=== PATIENT | female | born 1945 | race Caucasian/White ===

== ENCOUNTER → 2016-07-24 | Outpatient (CLI) | payer MEDICARE ==
--- NOTE | 2016-07-25 11:38 | MM ---
Reason for exam: screening (asymptomatic). Last mammogram was performed 2 years and 4 months ago. History: Patient is postmenopausal. Excisional biopsy of the right breast. Took estrogen for 11 years. Physical Findings: A clinical breast exam by your physician is recommended on an annual basis and results should be correlated with mammographic findings. MG 3D Screening Mammo W/Cad Bilateral CC and MLO view(s) were taken. Prior study comparison: April 07, 2014, bilateral MG screening mammo w CAD. January 13, 2013, bilateral digital screening mammo w/CAD. The breast tissue is almost entirely fat. Finding: There are grouped/clustered calcifications in the left breast. No significant changes in finding since April 07, 2014 and January 13, 2013. ASSESSMENT: Benign, BI-RAD 2 RECOMMENDATION: Routine screening mammogram of both breasts in 1 year.
== END | disposition home or self-care (01) ==
LOC: RADMAMWWP 08:51
PROVIDERS: ATTEND Family Medicine
DX: Z12.31 Encounter for screening mammogram for malignant neoplasm of breast (principal)
CPT/HCPCS: 77063; G0202

== ENCOUNTER → 2016-08-06 | Outpatient (CLI) | payer MEDICARE | END | disposition home or self-care (01) | LOC: RADNMMAIN 08:55 | PROVIDERS: ATTEND Family Medicine | DX: Z53.9 Procedure and treatment not carried out, unspecified reason (principal) ==

== ENCOUNTER → 2016-10-02 | Outpatient (CLI) | payer MEDICARE ==
[~2016-10-02] MED LIST: REGADENOSON 0.4 MG/5 ML SYRINGE IV ONE
--- NOTE | 2016-10-02 13:38 | NM ---
EXAMINATION TYPE: NM stress lexiscan cardiolite DATE OF EXAM: 10/02/2016 COMPARISON: NONE HISTORY: 71-year-old female with chest pain TECHNIQUE: After the intravenous administration of 10.77 mCi Tc 99m Sestamibi - Cardiolite resting S PECT images acquired 45 minutes post injection. The patient received 0.4mg Lexiscan, 24.5 mCi Tc 99m Sestamibi - Stress images obtained [address] injection FINDINGS: The technologist notes PVCs at baseline. Review of stress and rest SPECT images demonstrates diminished perfusion along the anterior wall [place] on both rest and stress images suspected to represent attenuation artifact as there normal wall m otion and wall augmentation. No discrete perfusion abnormality on stress images. Gated analysis shows a slightly reduced left ventricular ejection fraction of 50 % which may be technical as visual inspe ction of the gated images shows relatively normal contraction. However, TID is measured at 1.29, whic h is increased. IMPRESSION: 1. Suspect some attenuation artifact along the anterior wall. No definite suspicious focal reversibil ity is seen. 2. However, TID is increased at 1.29. Further clinical evaluation as indicated since this can be seen in the setting of global, three-vessel, balanced ischemia.
--- NOTE | 2016-10-02 14:31 | EST ---
DATE OF SERVICE: 10/02/2016 TYPE OF REPORT: LEXISCAN CARDIOLITE STRESS TEST INDICATION: Chest pain. BASELINE HEART RATE: 78 BASELINE BLOOD PRESSURE: 159/81 MAXIMUM HEART RATE: 106 MAXIMUM BLOOD PRESSURE: 131/60 85% MPHR: 128 100% MPHR: 150 METS: - MAXIMUM STAGE REACHED: - TOTAL EXERCISE TIME: - Baseline EKG revealed normal sinus rhythm without significant ST-T changes. Heart rate changed from 78 to 106 beats per minute and blood pressure changed from 159/81 to 131/60. EKG did not reveal any significant ST segment changes and patient did not have any significant symptoms. By EKG criteria, this is an unremarkable Lexiscan stress test. The nuclear scan results which are more pertinent will be reported by the radiologist. ADRIANA
== END | disposition home or self-care (01) ==
LOC: RADNMMAIN 09:00
PROVIDERS: ATTEND Family Medicine
DX: R07.9 Chest pain, unspecified (principal)
CPT/HCPCS: 93017; 78452; A9500; J2785

== ENCOUNTER 2016-11-12 06:17 | Day surgery (SDC) | payer MEDICARE ==
[2016-11-07 09:39] VITALS: BMI 39.9
[~2016-11-12 06:17] MED LIST changes: +ASPIRIN 325 MG TAB PO ONE; +NITROGLYCERIN SL TABS 0.4 MG TAB SUBLINGUAL PRN; -REGADENOSON 0.4 MG/5 ML SYRINGE IV ONE; +SODIUM CHLORIDE 0.9% 1,000 ML in EMPTY BAG 1 BAG IV ONE
[2016-11-12 06:54] VITALS: RESP 16; TEMP 97.7
[2016-11-12 07:15] LABS: Basophils % (A) 1 %; CHCM 34.2; Eosinophils # (A) 0.3 k/uL (0-0.7); Eosinophils % (A) 4 %; HCT 42.7 % (34.0-46.0); HDW 2.48; HGB 13.9 gm/dL (11.4-16.0); Luc # (Auto) 0.07; Luc % (Auto) 1; Lymphocytes # (A) 1.6 k/uL (1.0-4.8); Lymphocytes % (A) 25 %; MCH 29.7 pg (25.0-35.0); MCHC 32.6 g/dL (31.0-37.0); MCV 91.1 fL (80.0-100.0); Mean Platelet Volume 7.5; Monocytes # (A) 0.4 k/uL (0-1.0); Monocytes % (A) 6 %; Neutrophils # (A) 4.2 k/uL (1.3-7.7); Neutrophils % (A) 64 %; RBC 4.69 m/uL (3.80-5.40); RDW 14.6 % (11.5-15.5); WBC 6.6 k/uL (3.8-10.6); WBC (Perox) 6.34
[2016-11-12 07:16] LABS: Glucose,Whole Blood 143 mg/dL (75-99)
[2016-11-12] MEDS ORDERED: diphenhydrAMINE 50 MG/ML 1 ML VIAL ONE (07:16)
[2016-11-12] MEDS ORDERED: fentaNYL (PF) 50 MCG/ML 2 ML AMP ONE (07:16)
[2016-11-12] MEDS ORDERED: LIDOCAINE 2% INJ 20 MG/ML (20 ML MDV) ONE (07:16)
[2016-11-12] MEDS ORDERED: VERAPAMIL 2.5 MG/ML 2 ML AMP ONE (07:16)
[2016-11-12 07:26] LABS: Anion Gap 10 mmol/L; Blood Urea Nitrogen 17 mg/dL (7-17); Calcium 9.3 mg/dL (8.4-10.2); Carbon Dioxide 23 mmol/L (22-30); Chloride 107 mmol/L (98-107); Glucose 141 mg/dL (74-99); Non-African American GFR(MDRD) >60 (>60 ml/min/1.73 sqM); Potassium 3.8 mmol/L (3.5-5.1); Sodium 140 mmol/L (137-145)
[2016-11-12] MEDS ORDERED: diphenhydrAMINE 50 MG/ML 1 ML VIAL IVP ONE (07:38)
[2016-11-12] MEDS ORDERED: fentaNYL (PF) 50 MCG/ML 2 ML AMP IVP ONE (07:38)
[2016-11-12] MEDS ORDERED: HEPARIN SODIUM 1,000 UN/ML (10ML VL) ONE (07:41)
[2016-11-12] MEDS ORDERED: VERAPAMIL SYRINGE (5 MG/10 ML) INTRAARTER ONE (07:42)
[2016-11-12] MEDS ORDERED: HEPARIN SODIUM 1,000 UN/ML (10ML VL) IV ONE (07:50)
[2016-11-12] MEDS ORDERED: IOHEXOL 350 MG/ML 125ML BOTTLE INJ ONE (07:54)
[2016-11-12] MEDS ORDERED: RX INFO: IV CONTRAST WAS GIVEN 1 EACH MISC MISCELLANE PRN (09:23)
[2016-11-12] MEDS ORDERED: ALPRAZolam 0.5 MG TAB PO PRN (09:24)
[2016-11-12] MEDS ORDERED: SODIUM CHLORIDE 0.9% 1,000 ML IV SCH (09:30)
--- NOTE | 2016-11-12 09:30 | CC ---
CARDIAC CATHETERIZATION REPORT Mrs. Lopez is a 71-year-old female, known history of hypertension, hyperlipidemia, diabetes mellitus, history of peripheral vascular disease who had symptoms of dyspnea on exertion. She underwent a stress test that revealed evidence of fixed inferior wall defect was elevated TID. and ejection fraction 50%. In view of that, recommendation made regarding cardiac catheterization. The procedure, its risks and complication were discussed with the patient who is in full understanding and agreement. PROCEDURE: Patient was brought to the [facility] after receiving fentanyl and Benadryl and achieving moderate conscious sedated state, a selective right coronary angiography performed using 5-Yoruba 3.5 bend right Alvin catheter, multiple views of the coronary artery including hemiaxial views were obtained. Following that 5-Yoruba tight pigtail catheter was introduced into the left ventricle and a 30 degree IBARRA view of the left ventricle was obtained. Following that, catheter and sheath were removed. Hemostasis was obtained with deployment of a TR band. There was no immediate complication. Patient was returned to her room in stable condition. Of note, the patient received 5000 units of intravenous heparin as well as intra-arterial verapamil. FINDINGS: LEFT MAIN: This is a large-sized vessel, trifurcating into left circumflex, left anterior artery artery and ramus intermedius. Left main coronary artery is without any significant obstructive coronary artery disease. LEFT ANTERIOR DESCENDING ARTERY: This is a large-sized vessel reaching toward the apex with a wraparound apex segment giving rise to a moderate-sized diagonal branch in the mid segment. The left anterior descending artery and its branches have no evidence of obstructive coronary artery disease. RAMUS INTERMEDIUS: This is a small size vessel that has no evidence of high-grade stenosis. LEFT CIRCUMFLEX: This is a large-size vessel, nondominant, giving rise to a large obtuse marginal branch. The left circumflex as well as branches have no evidence of obstructive coronary artery disease. RIGHT CORONARY ARTERY: This is a dominant vessel large in caliber, bifurcating distally into PDA, posterior segmental branches. The right coronary artery as well as its branches have no evidence of obstructive coronary artery disease. LEFT VENTRICULOGRAM: Left ventriculogram is performed in 30 degree IBARRA view and revealed normal left ventricular size and systolic function, ejection fraction is 60%. There was no significant mitral regurgitation. HEMODYNAMICS: There was no gradient across the aortic valve. The left ventricular end- diastolic pressure was 10 to 12 mmHg. CONCLUSION: 1. Normal coronary arteries. 2. Normal left ventricular size and systolic function. RECOMMENDATION: In view of finding anatomy, I would recommend to continue medical therapy with aggressive risk factor modification being initiated. Those findings and recommendations were discussed with the patient and her family who are in full understanding and agreement. Duration of the procedure is 19 minutes. MMJERI / STEPHANIEN: [id number] /
--- NOTE | 2016-11-12 09:36 | LTR ---
Date: DATE OF SERVICE: 11/12/2016 RE: Anahy Lopez Dear Dr. Hobson; I had the pleasure to perform cardiac catheterization on Mrs. Lopez at [facility] on November 12, 2016 and a full copy of the procedure note will be forwarded to you. In brief, she was found to have no evidence of obstructive coronary artery disease and based on this findings, I have recommended to continue medical therapy with the aggressive risk factor modifications being initiated. Thank you again for allowing me to participate in the patient's care. Please feel free to call for any questions. Sincerely yours, MD KRISH BartlettL / STEPHANIEN: [id number] /
[2016-11-12 09:50] VITALS: PULSE 56
[2016-11-12 13:03] VITALS: BP 132/67
[2016-11-13] MEDS ORDERED: NON-FORMULARY DRUG (Simvastatin [Zocor] 20 MG) PO SCH (09:00)
[2016-11-13] MEDS ORDERED: LOSARTAN 50 MG TAB PO SCH (09:00)
[2016-11-13] MEDS ORDERED: HYDROCHLOROTHIAZIDE 25 MG TAB PO SCH (09:00)
[2016-11-13] MEDS ORDERED: NON-FORMULARY DRUG (Aspirin [Adult Low Dose Aspirin Ec] 81 MG) PO SCH (09:00)
[2016-11-13] MEDS ORDERED: NON-FORMULARY DRUG (Citalopram Hydrobromide [Citalopram Hbr] 40 MG) PO SCH (09:00)
== END 2016-11-12 13:03 | disposition home or self-care (01) ==
LOC: CATHCVL 06:17
PROVIDERS: ATTEND Internal Medicine Interventional Cardiology
DX: R06.09 Other forms of dyspnea (principal); R94.39 Abnormal result of other cardiovascular function study; I73.9 Peripheral vascular disease, unspecified; I10 Essential (primary) hypertension; E78.2 Mixed hyperlipidemia; E11.9 Type 2 diabetes mellitus without complications; Z79.84 Long term (current) use of oral hypoglycemic drugs; Z79.82 Long term (current) use of aspirin; Z79.899 Other long term (current) drug therapy
CPT/HCPCS: 99152; 93458; 80048; 85025; C1894; C1769; J1200; J3010; J1644; Q9967

== ENCOUNTER 2017-04-23 06:41 | Day surgery (SDC) | payer MEDICARE ==
[2017-04-22 10:32] VITALS: BMI 39.3
[2017-04-23 07:11] VITALS: TEMP 98.5
[2017-04-23] MEDS: LACTATED RINGERS 1,000 ML IV SCH ×2 (07:17→07:35)
[2017-04-23 07:25] LABS: Glucose,Whole Blood 137 mg/dL (75-99)
[2017-04-23] MEDS ORDERED: PROPOFOL 10 MG/ML 20 ML VIAL IV ONE (07:33)
--- NOTE | 2017-04-23 08:04 | P.PCN ---
Date of Procedure: 04/23/17 Procedure(s) Performed: BRIEF HISTORY: Patient is a 71-year-old pleasant white female, scheduled for an elective colonoscopy as a part of screening for colorectal neoplasia. PROCEDURE PERFORMED: Colonoscopy. PREOPERATIVE DIAGNOSIS: Screening for colon cancer. IV sedation per Anesthesia. PROCEDURE: After informed consent was obtained, the patient, was brought into the endoscopy unit. IV sedation was administered by Anesthesia under continuous monitoring. Digital rectal examination was normal. Initially the Olympus CF- 160 flexible video colonoscope was then inserted in the rectum, gradually advanced into the cecum without any difficulty. Careful examination was performed as the scope was gradually being withdrawn. Ileocecal valve and the appendiceal orifice were visualized and appeared normal. Prep was excellent. Mucosa of the cecum, ascending colon, transverse colon, descending colon, sigmoid colon, and rectum appeared normal. Scattered similar diverticulosis seen. Retroflexion was performed in the rectum and no lesions were seen. The patient tolerated the procedure well. IMPRESSION: Normal-appearing colon from rectum to cecum with no evidence of colorectal neoplasia. Scattered sigmoidal diverticulosis. RECOMMENDATIONS: Findings of this examination were discussed with the patient as well as her family. She was advised to have a repeat screening colonoscopy in 10 years.
[2017-04-23 08:13] LABS: Glucose,Whole Blood 126 mg/dL (75-99)
[2017-04-23 08:23] VITALS: RESP 18
[2017-04-23 08:41] VITALS: BP 159/89; PULSE 63
== END 2017-04-23 09:04 | disposition home or self-care (01) ==
LOC: ORWHC2ENDO 06:41
PROVIDERS: ATTEND Internal Medicine Gastroenterology
DX: Z12.11 Encounter for screening for malignant neoplasm of colon (principal); K57.30 Diverticulosis of large intestine without perforation or abscess without bleeding; I10 Essential (primary) hypertension; E78.5 Hyperlipidemia, unspecified; E11.9 Type 2 diabetes mellitus without complications; Z79.84 Long term (current) use of oral hypoglycemic drugs; Z79.82 Long term (current) use of aspirin; Z79.899 Other long term (current) drug therapy
CPT/HCPCS: J2704; G0121; 45378

== ENCOUNTER 2017-10-11 17:06 | Emergency (ER) | payer MEDICARE ==
[2017-10-11 17:15] LABS: Glucose,Whole Blood 170 mg/dL (75-99)
[2017-10-11 17:19] VITALS: BP 167/71; PULSE 76; RESP 18; TEMP 98.5
--- NOTE | 2017-10-11 17:57 | ED ---
General Adult HPI - General Chief complaint: Recheck/Abnormal Lab/Rx Stated complaint: hypoglycemia Time Seen by Provider: 10/11/17 17:26 Source: patient, RN notes reviewed Mode of arrival: ambulatory Limitations: no limitations - History of Present Illness Initial comments: This is a 72-year-old female who presents to the emergency department with chief complaint of blood glucose problems. Patient states that she has had Type II diabetes for many years. She states that she has been on metformin 500 mg twice a day. Patient states that she sees Dr. Hobson. Patient states that over the past few months she has had low blood sugar in the 20s each morning. She states that when this happens she feels sweaty and weak. Patient reports her blood sugar dropping into the 20s this morning. She states that she ate and then felt better. Patient states that she did address this with Dr. Hobson on Friday who suggested she stop taking her nighttime dose. Patient states that she has done this a couple of nights. She states that when she takes her blood sugar it is in the evening and is within normal range with an average of 115. Patient has no complaints at this time. She is asymptomatic. Denies fevers or chills, chest pain or shortness of breath, abdominal pain, nausea or vomiting, weakness or dizziness. - Related Data Home Medications Medication Instructions Recorded Confirmed Aspirin [Adult Low Dose Aspirin EC] 81 mg PO DAILY 11/07/16 04/23/17 Hydrochlorothiazide 25 mg PO DAILY 11/07/16 04/23/17 Losartan Potassium [Cozaar] 50 mg PO DAILY 11/07/16 04/23/17 Simvastatin [Zocor] 20 mg PO DAILY 11/07/16 04/23/17 metFORMIN HCL [Glucophage] 500 mg PO BID 11/07/16 04/23/17 ALPRAZolam [Xanax] 0.25 mg PO Q8HR PRN 04/22/17 04/23/17 Citalopram Hydrobromide 20 mg PO DAILY 04/22/17 04/23/17 [Citalopram HBr] Allergies Allergy/AdvReac Type Severity Reaction Status Date / Time No Known Allergies Allergy Verified 10/11/17 17:06 Review of Systems ROS Statement: Those systems with pertinent positive or pertinent negative responses have been documented in the HPI. ROS Other: All systems not noted in ROS Statement are negative. Past Medical History Past Medical History: Diabetes Mellitus, GERD/Reflux, Hyperlipidemia, Hypertension, Osteoarthritis (OA) Additional Past Medical History / Comment(s): arthritis rt knee, History of Any Multi-Drug Resistant Organisms: None Reported Past Surgical History: Breast Surgery, Cholecystectomy, Heart Catheterization, Hysterectomy, Tubal Ligation Additional Past Surgical History / Comment(s): rt breast biopsy, rt carotid endartectomy Past Anesthesia/Blood Transfusion Reactions: No Reported Reaction Additional Past Anesthesia/Blood Transfusion Reaction / Comment(s): claustrophobic Past Psychological History: Anxiety, Depression Smoking Status: Never smoker Past Alcohol Use History: None Reported Past Drug Use History: None Reported - Past Family History Mother Family Medical History: No Reported History Father Family Medical History: Cancer General Exam - General Exam Comments Initial Comments: General: Awake and alert, well-developed; in no apparent distress. HEENT: Head atraumatic, normocephalic. Pupils are equal, round and reactive to light. Extraocular movements intact. Oropharynx moist without erythema or exudate. Neck: Supple. Normal ROM. Cardiovascular: Regular rate and rhythm. No murmurs, rubs or gallops. Chest symmetrical. Respiratory: Lungs clear to auscultation bilaterally. No wheezes, rales or rhonchi. Normal respiratory effort with no use of accessory muscles. Musculoskeletal: Normal ROM, no tenderness bilateral upper and lower extremities. Ambulating normally. Skin: [place], warm and dry without rashes or lesions. Neurological: Alert and oriented x3. CN II-XII grossly intact. Speech is fluent and answers are appropriate. No focal neuro deficits. Psychiatric: Normal mood and affect. No overt signs of depression or anxiety noted. Limitations: no limitations Course Vital Signs 10/11/17 17:06 Temperature 98.5 F Pulse Rate 76 Respiratory 18 Rate Blood Pressure 167/71 O2 Sat by Pulse 98 Oximetry Medical Decision Making - Medical Decision Making This is a 72-year-old female who presents to the emergency department with chief complaint of blood glucose issues. Patient is a type II diabetic. She takes metformin 500 mg twice a day. Patient reports hypoglycemia in the mornings. She states that she has followed up with her primary care provider who suggested not taking her nighttime dose. Patient states that she has done this a few times since Friday. Patient reports continuing hypoglycemia in the mornings however feels better after she eats. While in the emergency department , patient is asymptomatic. Her glucometer has a reading of 159 and ours is 170. Patient has not yet taken her metformin today. I did provide diabetic education. We discussed withholding her nighttime dose as was instructed by Dr. Hobson if her morning blood glucose levels remained low. We discussed making a record of her blood glucose levels and when she is taking her metformin. I recommended taking this record to her next appointment which I did suggest making within the next couple of days. Patient's vital signs the been stable and she is in no acute distress. She is in agreement with plan and voices understanding. She will be discharged home at this time. All questions answered. - Lab Data Lab Results 10/11/17 Range/Units 17:11 POC Glucose (mg/dL) 170 H (75-99) mg/dL POC Glu Outbound Call Center Representative ID Maren Barahona Disposition Clinical Impression: Encounter for diabetes education Disposition: HOME SELF-CARE Condition: Good Instructions: How to Check Your Blood Sugar (ED), Type 2 Diabetes in Adults (ED ) Additional Instructions: Please make a record of your blood glucose levels in the morning and in the evening and time you take your metformin. Please bring the record to your next appointment with Dr. Hobson and follow-up within 1-2 days. Please withhold your nighttime dose if morning blood sugars continue to be low. Please return to the emergency department if you develop any worsening symptoms or any concerns arise. Is patient prescribed a controlled substance at d/c from ED?: No Referrals: Sandrita Hobson MD [Primary Care Provider] - 1-2 days Time of Disposition: 17:59
== END 2017-10-11 18:10 | disposition home or self-care (01) ==
LOC: EC 17:06
DX: Z71.89 Other specified counseling (principal); E11.9 Type 2 diabetes mellitus without complications; E78.5 Hyperlipidemia, unspecified; I10 Essential (primary) hypertension; M17.11 Unilateral primary osteoarthritis, right knee; F32.9 Major depressive disorder, single episode, unspecified; F41.9 Anxiety disorder, unspecified; Z79.82 Long term (current) use of aspirin; Z79.84 Long term (current) use of oral hypoglycemic drugs; Z79.899 Other long term (current) drug therapy
CPT/HCPCS: 36415; 99284

== ENCOUNTER → 2018-09-22 | Outpatient (CLI) | payer MEDICARE ==
[2018-09-22 16:03] LABS: HCT 42.5 % (34.0-46.0); HGB 13.6 gm/dL (11.4-16.0); MCH 29.5 pg (25.0-35.0); MCHC 31.9 g/dL (31.0-37.0); MCV 92.3 fL (80.0-100.0); Mean Platelet Volume 6.6; Platelet Count 343 k/uL (150-450); RDW 13.8 % (11.5-15.5); WBC 11.1 k/uL (3.8-10.6)
[2018-09-22 16:08] LABS: Prothrombin Time 10.4 sec (9.0-12.0)
[2018-09-22 16:09] LABS: Partial Thromboplastin Time 22.3 sec (22.0-30.0)
[2018-09-22 16:14] LABS: Albumin 4.6 g/dL (3.5-5.0); Calcium 9.9 mg/dL (8.4-10.2); Potassium 4.1 mmol/L (3.5-5.1); Total Bilirubin 0.3 mg/dL (0.2-1.3)
[2018-09-22 16:22] LABS: Appearance,Urine Clear (Clear); Bacteria,Urine Occasional /hpf; Bilirubin,Urine Negative (Negative); Blood,Urine Negative (Negative); Color,Urine Yellow; Glucose,Urine (UA) Negative (Negative); Ketones,Urine Negative (Negative); Leukocyte Esterase,Urine Large (Negative); Mucus,Urine Rare /hpf; Nitrite,Urine Negative (Negative); PH, Urine 6.5 (5.0-8.0); Protein,Urine Negative (Negative); RBC,Urine 1 /hpf (0-5); Specific Gravity,Urine 1.017 (1.001-1.035); Squamous Epithelial Cell,Urine <1 /hpf (0-4); Urobilinogen,Urine <2.0 mg/dL (<2.0); WBC,Urine 63 /hpf (0-5)
== END | disposition home or self-care (01) ==
LOC: LABPAT 15:21
PROVIDERS: ATTEND Orthopaedic Surgery Sports Medicine
DX: Z01.812 Encounter for preprocedural laboratory examination (principal); Z01.818 Encounter for other preprocedural examination
CPT/HCPCS: 36415; 80053; 81001; 85027; 85610; 85730; 87070; 93005

== ENCOUNTER 2018-10-07 10:48 | Day surgery (SDC) | payer MEDICARE ==
[~2018-10-07 10:48] MED LIST changes: +ACETAMINOPHEN TAB 500 MG TAB PO ONE; -ASPIRIN 325 MG TAB PO ONE; +DEXAMETHASONE SOD PHOSPHATE 10 MG/ML 1 ML VIAL IV ONE; +GABAPENTIN 300 MG CAP PO ONE; +HYDROmorphone 0.5 MG/0.5 ML SYRINGE IVP PRN; +MELOXICAM 7.5 MG TAB PO ONE; -NITROGLYCERIN SL TABS 0.4 MG TAB SUBLINGUAL PRN; +ONDANSETRON 4 MG/2 ML VIAL IVP ONE; +ROPIVACAINE 246.25 MG, EPINEPHrine 0.5 MG, KETOROLAC 30 MG, cloNIDine HCL/PF 80 MCG, WA... MISCELLANE ONE; -SODIUM CHLORIDE 0.9% 1,000 ML in EMPTY BAG 1 BAG IV ONE; +TRANEXAMIC ACID 1,000 MG in SODIUM CHLORIDE 0.9% 100 ML IVPB ONE
[2018-10-07] MEDS: LACTATED RINGERS 1,000 ML IV SCH (11:42)
[2018-10-07 11:43] LABS: Glucose,Whole Blood 110 mg/dL (75-99)
[2018-10-07] MEDS ORDERED: MIDAZOLAM 2 MG/2 ML VIAL ONE (12:29)
[2018-10-07] MEDS ORDERED: TRANEXAMIC ACID 1,000 MG/10 ML VIAL ONE (12:29)
[2018-10-07] MEDS ORDERED: SODIUM CHLORIDE 0.9% 100 ML BAG ONE (12:29)
[2018-10-07] MEDS ORDERED: MORPHINE SULFATE (PF) 0.3 MG/0.3 ML SYR ONE (12:29)
[2018-10-07] MEDS ORDERED: ePHEDrine SULFATE/0.9% NACL/PF 50 MG/5 ML SYRINGE IV ONE (12:29)
[2018-10-07] MEDS ORDERED: PROPOFOL 10 MG/ML 20 ML VIAL IV ONE (12:29)
[2018-10-07] MEDS ORDERED: fentaNYL (PF) 50 MCG/ML 2 ML AMP ONE (12:29)
[2018-10-07] MEDS ORDERED: ceFAZolin 3,000 MG in SODIUM CHLORIDE 0.9% IRRIGATIO 3,000 ML IRRIGATION ONE (12:34)
[2018-10-07] MEDS ORDERED: LACTATED RINGERS 1,000 ML IV ONE (13:42)
[2018-10-07] MEDS ORDERED: HYDROmorphone 0.5 MG/0.5 ML SYRINGE IVP PRN ×3 (14:24)
[2018-10-07] MEDS ORDERED: TEMAZEPAM 15 MG CAP PO PRN (14:24)
[2018-10-07] MEDS ORDERED: BISACODYL 10 MG SUPP RECTAL PRN (14:24)
[2018-10-07] MEDS ORDERED: HYDROcodone/APAP 5-325MG 1 EACH TAB PO PRN (14:24)
[2018-10-07] MEDS ORDERED: DIAZEPAM 5 MG TAB PO PRN (14:24)
[2018-10-07] MEDS ORDERED: MAGNESIUM HYDROXIDE 2,400 MG/10 ML CUP PO PRN (14:24)
[2018-10-07] MEDS ORDERED: ONDANSETRON 4 MG/2 ML VIAL IVP PRN (14:24)
[2018-10-07] MEDS ORDERED: NA PHOS,M-B/NA PHOS,DI-BA 133 ML ENEMA RECTAL PRN (14:24)
[2018-10-07] MEDS ORDERED: NALOXONE 0.4 MG/ML 1 ML VIAL IV PRN (14:24)
[2018-10-07] MEDS ORDERED: traMADol 50 MG TAB PO PRN (14:24)
[2018-10-07] MEDS ORDERED: HYDROcodone/APAP 10-325MG 1 EACH TAB PO PRN (14:24)
[2018-10-07] MEDS ORDERED: hydrOXYzine PAMOATE 25 MG CAP PO PRN (14:24)
--- NOTE | 2018-10-07 14:54 | XR ---
EXAMINATION TYPE: XR knee limited RT DATE OF EXAM: 10/07/2018 CLINICAL HISTORY: Right knee pain and arthritis status post total knee replacement. TECHNIQUE: Portable AP and crosstable lateral views of the right knee are obtained immediately posto peratively. COMPARISON: None FINDINGS: Metallic hardware from total right knee arthroplasty is seen and appears satisfactory in a lignment and position. There is evidence of recent surgery with subcutaneous emphysema and edema not ed. IMPRESSION: METALLIC HARDWARE FROM TOTAL RIGHT KNEE ARTHROPLASTY IS SATISFACTORY IN ALIGNMENT.
[2018-10-07] MEDS ORDERED: diphenhydrAMINE 50 MG/ML 1 ML VIAL IVP PRN (15:24)
[2018-10-07] MEDS ORDERED: NALBUPHINE 10 MG/ML (1 ML AMP) IV PRN (15:24)
[2018-10-07 16:15] LABS: Glucose,Whole Blood 184 mg/dL (75-99)
[2018-10-07 16:29] VITALS: BMI 40.2
[2018-10-07] MEDS: INSULIN ASPART (NovoLOG) 100 UNIT/ML VIAL SQ SCH ×2 (17:27→21:21)
--- NOTE | 2018-10-07 17:51 | OP ---
OPERATIVE REPORT DATE OF PROCEDURE: 10/07/2018 SURGEON: René Patino MD. UNDERTAKER HELPER: Tez FARRIS. PREOPERATIVE DIAGNOSIS: Right knee osteoarthrosis. POSTOPERATIVE DIAGNOSIS: Right knee osteoarthrosis. OPERATION PERFORMED: Right total knee arthroplasty. ANESTHESIA: Spinal with sedation. ESTIMATED BLOOD LOSS: 100 mL. TOURNIQUET TIME: 42 minutes at 250 mmHg. COMPLICATIONS: None apparent. DRAINS: None. DISPOSITION: Postanesthesia care unit. INDICATIONS: Anahy is a very pleasant 73-year-old female with longstanding history of right knee pain. History and physical examination are consistent with advanced right knee osteoarthrosis. She has been through significant nonoperative management at this point. Further treatment options were discussed and she has decided to go forward with right total knee arthroplasty. The risks of procedure were discussed with her in detail. These risks include, but are not limited to risk of infection, nerve damage, bleeding, pain and risk of deep vein thrombosis which could lead to fatal pulmonary embolism. There is also risk of loosening of the implant which could require revision operation. The patient understands these risks. All of her questions were answered to her satisfaction. Appropriate informed consent was obtained. DESCRIPTION OF PROCEDURE: Patient identified in preoperative holding area. Surgical sites marked by both the patient and myself. She was given 2 g of Ancef IV for prophylactic purposes. She was then transferred to the operative suite. She was placed supine on the operative table. A spinal anesthetic was then administered and dosed per the anesthesia department without apparent complication. Examination under anesthesia was then performed. The patient was 2-3 degrees shy of full extension. She had 100 degrees of flexion in the medial collateral ligament, lateral collateral ligament. Posterior cruciate ligaments were stable. Tourniquet was then placed high on the right upper thigh well-padded in preparation for surgery. The patient's right lower extremity was then prepped and draped in usual sterile fashion. Standard surgical pause undertaken to ensure that we were operating the correct site and that appropriate preop antibiotics were given. All staff in the room in agreement and we proceeded. The outlines of the patella were marked with a surgical pen. A planned 12 cm vertical incision centered over the patella was marked with a surgical pen. The leg was then exsanguinated with an Esmarch dressing. The knee was then flexed. The tourniquet was inflated to 250 mmHg. The total total tourniquet time for the procedure was 42 minutes. Incision was then made with a 10 blade scalpel. Dissection carried down sharply overlying fascia. Great care was taken to minimize the skin flaps. The knee was then exposed using a standard medial parapatellar approach. A small cuff of quadriceps tendon was then left for suturing. She was in a bit of varus preoperatively. A standard medial release was then made. Superficial medial collateral ligament was dissected off the bone around the posterior aspect of the proximal tibia. The medial meniscus was then excised as well. The lateral meniscus was also released anteriorly. The leg was then externally rotated. The patella was everted. The knee was flexed. The retractors then placed to protect the collateral ligaments. I then proceeded to remove the infrapatellar fat pad. This was excised sharply tangentially with the fibers of the patellar tendon. I then proceeded to remove peripheral osteophytes. This was done with a rongeur. I then proceed with the distal femoral resection. She did have near full extension. A planned 9 mm resection was then done. The femoral canal was then entered in the midline of the femur approximately 10 mm anterior to the origin of the posterior cruciate ligament. The mane was then advanced down the center of the femur and placed intramedullary. Based on the preoperative radiographs, the angle between the anatomic and mechanical axis of the femur was approximately 4-5 degrees. The valgus angle of the distal femoral cutting guide was then set at 4 degrees for the right knee. The distal femoral cutting guide was then advanced over the intramedullary mane. This was seated firmly against the femur. I then as mentioned planned to take 9 mm off the distal femur. The cutting block was then secured onto the femur with pins. The jig was removed. The distal femoral cut was made through the slot of the block. The pins were then removed. The distal femoral cutting block was removed. The accuracy of the distal femoral cuts was checked with 2 flat bars. I then proceed to femoral sizing. Posterior referencing sizing guide was held firmly against the resected distal surface of the femur. The posterior condyles were resting on the posterior plane of the guide. The sizing stylus was then placed onto the anterior femur. The size measured as a size 7. I then assessed for femoral rotation. The plan was for 3 degrees of external rotation. Three degrees of external rotation was placed onto the jig. These holes were then marked. I then confirmed the rotation by 3 separate methods. This was done using epicondylar axis as well as Whitesides line and posterior referencing. It was deemed that the external rotation was proper. I then went forward placing the femoral cutting block. This was placed over the previously placed pin holes. The Tomy wing was then placed onto the anterior slots to ensure that we would not notch the anterior femur with the anterior femoral cut. I then proceed with the anterior femoral cut. This was flush with the anterior cortex of the femur. Posterior cuts were then made followed by the anterior chamfer cut, then the posterior chamfer cut. The cutting block was then removed. Throughout the resection, the collateral ligaments were protected with retractors. I then placed a trial size 7 femur. It was slightly wide mediolateral but the narrow fit very nicely and flush with the distal end of the femur. The drill holes were then made. I then proceed with the tibial cut. I planned for cruciate -retaining knee. The guide was placed and set for varus valgus and for slope. The height was set for approximate 2 mm resection from the medial tibial plateau which was the lower side. I was happy with the alignment amount of resection. The cutting block was then pinned to the proximal tibia. The alignment mane was removed. The proximal tibia was resected with a reciprocating saw. Again this was done with retractors protecting the collateral ligaments as well as the posterior cruciate ligament. I then proceeded to evaluate the flexion and extension gaps. A 10 mm block was then placed. The flexion-extension gaps were equal. I then proceed to resection of posterior osteophytes. She had minimal posterior osteophytes. This was done using a curved osteotome. This resected the posterior osteophytes and posterior capsule stripping was done off the posterior aspect of the femur at this time. The osteophytes were then removed. I then proceed to resection of patella. The thickness of patella was measured using the caliper. The thickness was approximately point was 22 mm. The thickness of the anticipated patellar dome was taken into account. Resection was then performed and confirmed to be equal in 4 quadrants using a caliper. Approximately 14 mm of bone remained after the resection. A 29 x 8 standard patellar trial was then placed. The holes were drilled. The trial was then placed. I then proceed to size the tibial plate. A size D tibial plate fit very nicely. I then placed the trial femur the tibial tray and patellar button. A 10 mm trial tibial insert was also placed. The components fit very nicely. She had full extension and flexion. The extension and flexion gaps were equal and stable to both varus and valgus stress. The patella tracked appropriately. Tibial tray rotation was then marked with a Bovie. This was externally rotated properly. I then proceed with tibial preparation. I first drilled the femoral holes and removed femoral component. The tibial tray was then set for proper external rotation as well as mediolateral placement onto the tibia. It was then pinned into place. I then proceed with punching the keel. Then, I decided to proceed with cementing of all of our components. The knee was thoroughly irrigated with sterile saline solution via pulse lavage. The lateral geniculate artery was identified and cauterized. All blood was removed from the bone of the tibia femur and patella with pulse lavage. Then proceeded with cementing. Two packs of antibiotic bone cement prepared on the back table by the surgical oncologist. I then proceed with cementing the tibia first. The cement was impacted in the keel as well as the seated in the bone. A second coat of cement was then placed. The tibia was then impacted into place. Excess cement was removed with Jimbo's and jokers. I then proceed with cementing of the femoral component. The femoral component was also cemented using standard technique. Excess cement was removed. A 10 mm trial insert was then placed into the knee. It was brought into full extension with a constant axial load placed until the cement had hardened. The patellar component was then cemented. This held firmly with a compressive device until the cement had dried. When the cement had dried, the knee was taken out of extension. All excess cement was removed from around the prosthesis. I then trialed the knee with a 10 mm insert. The flexion-extension gaps were appropriate. The knee was stable. It came into full extension. I decided to go forward with a 10 mm cross-linked cruciate-retaining tibial insert. Polyethylene was then placed on the tibial tray and locked into place. The knee was then reduced. The knee was again further irrigated with sterile saline solution with antibiotic added. The tourniquet was then deflated. Total tourniquet time for the procedure was 42 minutes at 250 mmHg. Final components were Win Persona size 7 narrow cruciate-retaining femoral component, a size D tibial tray, a 10 mm medial congruent cruciate-retaining tibial polyethylene insert, and a 29 x 8 mm patella. I then proceeded with closure. Again, the knee was thoroughly irrigated. The quadriceps tendon and the medial retinaculum were reapproximated with #2 Ethibond suture. The extensor mechanism was then closed with a running #2 Quill suture. The subcutaneous tissues were closed with 2-0 Vicryl interrupted suture. The skin was closed with a running 3-0 Quill suture. Dermabond was applied to the incision. Sterile compressive dressing was then applied. All sponge and needle counts were deemed correct prior to closure. The patient tolerated the procedure without apparent complication. She was transferred recovery room in stable condition. MMODL / IJN: [id number] /
--- NOTE | 2018-10-07 17:56 | P.CONS ---
History of Present Illness - Reason for Consult Recommendations regarding antidepressant medications - History of Present Illness 73-year-old pleasant female was admitted for elective right knee arthroplasty patient is clinically doing well at this time no fever no chills no nausea no vomiting no dysuria. Patient does have history of decubitus mellitus does have history of hypertension and breast medications are being held to avoid perioperative hypotension. Review of Systems REVIEW OF SYSTEMS: CONSTITUTIONAL: No fever, no malaise, no fatigue. HEENT: No recent visual problems or hearing problems. Denied any sore throat. CARDIOVASCULAR: No chest pain, orthopnea, PND, no palpitations, no syncope. PULMONARY: No shortness of breath, no cough, no hemoptysis. GASTROINTESTINAL: No diarrhea, no nausea, no vomiting, no abdominal pain. NEUROLOGICAL: No headaches, no weakness, no numbness. HEMATOLOGICAL: Denies any bleeding or petechiae. GENITOURINARY: Denies any burning micturition, frequency, or urgency. MUSCULOSKELETAL/RHEUMATOLOGICAL: Denies any joint pain, swelling, or any muscle pain. ENDOCRINE: Denies any polyuria or polydipsia. The rest of the 14-point review of systems is negative. Past Medical History Past Medical History: Diabetes Mellitus, Hyperlipidemia, Hypertension, Osteoarthritis (OA) Additional Past Medical History / Comment(s): arthritis rt knee, History of Any Multi-Drug Resistant Organisms: None Reported Past Surgical History: Breast Surgery, Cholecystectomy, Heart Catheterization, Hysterectomy, Tonsillectomy, Tubal Ligation Additional Past Surgical History / Comment(s): rt breast biopsy, rt carotid endartectomy Past Anesthesia/Blood Transfusion Reactions: No Reported Reaction Additional Past Anesthesia/Blood Transfusion Reaction / Comm: claustrophobic Past Psychological History: Anxiety, Depression Additional Psychological History / Comment(s): claustrophobia Smoking Status: Never smoker Past Alcohol Use History: None Reported Past Drug Use History: None Reported - Past Family History Mother Family Medical History: No Reported History Father Family Medical History: Cancer Medications and Allergies Home Medications Medication Instructions Recorded Confirmed Type Aspirin [Adult Low Dose Aspirin EC] 81 mg PO DAILY 11/07/16 09/29/18 History Hydrochlorothiazide 25 mg PO DAILY 11/07/16 10/07/18 History Losartan Potassium [Cozaar] 50 mg PO DAILY 11/07/16 09/29/18 History Simvastatin [Zocor] 20 mg PO DAILY 11/07/16 10/07/18 History metFORMIN HCL [Glucophage] 500 mg PO HS 11/07/16 10/07/18 History ALPRAZolam [Xanax] 0.25 mg PO Q8HR PRN 04/22/17 09/29/18 History Citalopram Hydrobromide 20 mg PO DAILY 04/22/17 10/07/18 History [Citalopram HBr] Allergies Allergy/AdvReac Type Severity Reaction Status Date / Time No Known Allergies Allergy Verified 09/29/18 13:35 Physical Exam Vitals: Vital Signs Temp Pulse Pulse Pulse Resp BP BP 10/07/18 17:08 16 10/07/18 17:07 76 118/74 10/07/18 16:53 88 103/47 10/07/18 16:07 83 117/73 10/07/18 15:52 91 128/76 10/07/18 15:37 84 114/59 10/07/18 15:29 97.5 F L 87 16 118/68 10/07/18 15:02 84 20 105/55 10/07/18 14:47 83 18 123/60 10/07/18 14:32 85 18 121/56 10/07/18 14:22 97.0 F L 89 13 108/54 10/07/18 11:34 97.7 F 71 16 144/72 Pulse Ox 10/07/18 17:08 10/07/18 17:07 90 L 10/07/18 16:53 90 L 10/07/18 16:07 95 10/07/18 15:52 92 L 10/07/18 15:37 93 L 10/07/18 15:29 92 L 10/07/18 15:02 94 L 10/07/18 14:47 93 L 10/07/18 14:32 95 10/07/18 14:22 92 L 10/07/18 11:34 95 Intake and Output 10/07/18 10/07/18 10/07/18 06:59 14:59 22:59 Intake Total 1251 300 Output Total 100 Balance 1151 300 Intake: IV 1251 300 Output: Estimated Blood Loss 100 PHYSICAL EXAMINATION: GENERAL: The patient is alert and oriented x3, not in any acute distress. Well developed, well nourished. HEENT: Pupils are round and equally reacting to light. EOMI. No scleral icterus. No conjunctival pallor. Normocephalic, atraumatic. No pharyngeal erythema. No thyromegaly. CARDIOVASCULAR: S1 and S2 present. No murmurs, rubs, or gallops. PULMONARY: Chest is clear to auscultation, no wheezing or crackles. ABDOMEN: Soft, nontender, nondistended, normoactive bowel sounds. No palpable organomegaly. MUSCULOSKELETAL: No joint swelling or deformity. Right knee is postsurgical effect EXTREMITIES: No cyanosis, clubbing, or pedal edema. NEUROLOGICAL: Gross neurological examination did not reveal any focal deficits. SKIN: No rashes. Results Labs: Abnormal Lab Results - Last 24 Hours (Table) 10/07/18 10/07/18 Range/Units 11:39 16:11 POC Glucose (mg/dL) 110 H 184 H (75-99) mg/dL Assessment and Plan Plan: -Hypertension will hold off on anti-of his medications including diuretic therapy to avoid perioperative hypotension related to monitor the blood pressure -Status post right knee arthroplasty pain management due to prophylaxis per primary service patient is in aspirin 325 mg twice a day because of which I'll discontinue 81 mg aspirin. -Hyperlipidemia -Type 2 diabetes mellitus: Will use sliding scale insulin -Osteoarthritis -Depression For above-mentioned chronic with problems patient can be resumed on her medications
[2018-10-07 20:11] LABS: Glucose,Whole Blood 240 mg/dL (75-99)
[2018-10-07] MEDS ORDERED: SENNOSIDES-DOCUSATE SODIUM 1 EACH TAB PO SCH (21:00)
[2018-10-07 21:12] LABS: Glucose,Whole Blood 228 mg/dL (75-99)
[2018-10-07] MEDS: ASPIRIN 325 MG TAB PO SCH (21:20)
[2018-10-08] MEDS: LACTATED RINGERS 1,000 ML IV SCH (04:33)
[2018-10-08 07:21] LABS: Glucose,Whole Blood 142 mg/dL (75-99)
[2018-10-08 08:03] VITALS: BP 100/62; PULSE 61; TEMP 98.3
[2018-10-08] MEDS: INSULIN ASPART (NovoLOG) 100 UNIT/ML VIAL SQ SCH ×2 (08:43→11:44)
[2018-10-08] MEDS: ASPIRIN 325 MG TAB PO SCH (08:44)
[2018-10-08 08:54] LABS: Basophils % (A) 0 %; Eosinophils # (A) 0.1 k/uL (0-0.7); Eosinophils % (A) 0 %; HCT 37.3 % (34.0-46.0); HGB 11.9 gm/dL (11.4-16.0); Lymphocytes # (A) 1.3 k/uL (1.0-4.8); Lymphocytes % (A) 11 %; MCH 30.4 pg (25.0-35.0); MCHC 31.9 g/dL (31.0-37.0); MCV 95.3 fL (80.0-100.0); Mean Platelet Volume 7.6; Monocytes # (A) 0.4 k/uL (0-1.0); Monocytes % (A) 4 %; Neutrophils # (A) 9.9 k/uL (1.3-7.7); Neutrophils % (A) 85 %; Platelet Count 292 k/uL (150-450); RBC 3.92 m/uL (3.80-5.40); RDW 14.6 % (11.5-15.5); WBC 11.7 k/uL (3.8-10.6)
[2018-10-08] MEDS ORDERED: ATORVASTATIN 10 MG TAB PO SCH (09:00)
[2018-10-08] MEDS ORDERED: CITALOPRAM HYDROBROMIDE 20 MG TAB PO SCH (09:00)
[2018-10-08 10:13] VITALS: RESP 18
--- NOTE | 2018-10-08 10:48 | P.DS ---
Providers Expected date of discharge: 10/08/18 Attending physician: René Patino Consults: 10/07/18 14:24 Consult Physician Routine Consulting Provider: Edgardo Rosenberg Consult Reason/Comments: post op medical management Do you want consulting provider notified?: Yes Primary care physician: Sandrita Hobson - Discharge Diagnosis(es) (1) Total knee replacement status Patient was admitted to the OR on 10/07/2018 to undergo a right total knee arthroplasty. She had failed conservative measures as an outpatient and desired to proceed with elective surgery after given informed consent. She underwent the above procedure which she tolerated well without complication. Postoperative hospital course has remained without complication. On day of discharge she is afebrile, vital signs stable, labs within acceptable ranges, tolerating by mouth meds and diet, voiding without difficulty, positive flatus, denies abdominal pain or calf pain, pain is controlled on oral pain medication and has no new complaints. Wound is benign, neurovascular status is intact, calf is soft and nontender, abdomen soft and nontender. Review of systems is negative for numbness, tingling, fever, chills, chest pain, shortness of breath, nausea, vomiting, dizziness, headaches, slurred speech or other. Current Visit: Yes Status: Acute Priority: Medium (2) Osteoarthritis of right knee Current Visit: Yes Status: Acute Priority: Medium Procedures: Right TKA Patient Condition at Discharge: Good Plan - Discharge Summary Discharge Rx Participant: No New Discharge Prescriptions: New Aspirin 325 mg PO BID #60 tab Docusate [Colace] 100 mg PO BID #60 capsule HYDROcodone/APAP 7.5-325MG [[place] 7.5-325] 1 - 2 each PO Q6HR PRN #56 tab PRN Reason: Pain No Action Simvastatin [Zocor] 20 mg PO DAILY Losartan Potassium [Cozaar] 50 mg PO DAILY Hydrochlorothiazide 25 mg PO DAILY Aspirin [Adult Low Dose Aspirin EC] 81 mg PO DAILY metFORMIN HCL [Glucophage] 500 mg PO HS Citalopram Hydrobromide [Citalopram HBr] 20 mg PO DAILY ALPRAZolam [Xanax] 0.25 mg PO Q8HR PRN PRN Reason: Anxiety Discharge Medication List Aspirin [Adult Low Dose Aspirin EC] 81 mg PO DAILY 11/07/16 [History] Hydrochlorothiazide 25 mg PO DAILY 11/07/16 [History] Losartan Potassium [Cozaar] 50 mg PO DAILY 11/07/16 [History] Simvastatin [Zocor] 20 mg PO DAILY 11/07/16 [History] metFORMIN HCL [Glucophage] 500 mg PO HS 11/07/16 [History] ALPRAZolam [Xanax] 0.25 mg PO Q8HR PRN 04/22/17 [History] Citalopram Hydrobromide [Citalopram HBr] 20 mg PO DAILY 04/22/17 [History] Aspirin 325 mg PO BID #60 tab 10/08/18 [Rx] Docusate [Colace] 100 mg PO BID #60 capsule 10/08/18 [Rx] HYDROcodone/APAP 7.5-325MG [[place] 7.5-325] 1 - 2 each PO Q6HR PRN #56 tab 10/08/18 [Rx] Follow up Appointment(s)/Referral(s): Sandrita Hobson MD [Primary Care Provider] - 10/15/18 9:30 am René Patino MD [STAFF PHYSICIAN] - 10/16/18 1:05 pm Activity/Diet/Wound Care/Special Instructions: Keep wound clean and dry Take meds as directed Follow-up with Dr. Patino in office Weight bear as tolerated May shower in 3 days if no bleeding Discharge Disposition: HOME WITH HOME HEALTH SERVICES
[2018-10-08] MEDS ORDERED: ALPRAZolam 0.25 MG TAB PO PRN (11:16)
[2018-10-08 11:26] LABS: Glucose,Whole Blood 99 mg/dL (75-99)
--- NOTE | 2018-10-08 12:57 | P.PN ---
Subjective 73-year-old female admitted for orthopedic surgery and clinically doing well. Her blood pressure remains low which is expected have systolic is around 100 because of that reason I asked her to hold off on losartan and check the blood pressure at home and take it to PCP . Her daughter is at was discontinued. Patient is otherwise clinically doing well can be discharged from medical perspective Constitutional: Denied any fatigue denied any fever. Cardio vascular: denied any chest pain, palpitations Gastrointestinal denied any nausea vomiting Pulmonary: Denied any shortness of breath cough Neurologic denied any new focal deficits All inpatient medications were reviewed and appropriate changes in these medications as dictated in the interval history and assessment and plan. Objective - Vital Signs Vital signs: Vital Signs Temp 98.3 F 10/08/18 07:00 Pulse 61 10/08/18 07:00 Resp 18 10/08/18 10:00 BP 100/62 10/08/18 07:00 Pulse Ox 90 L 10/08/18 07:00 Intake & Output 10/07/18 10/08/18 10/08/18 18:59 06:59 18:59 Intake Total 1551 240 Output Total 100 Balance 1451 240 Intake: IV 1551 Oral 240 Output: Estimated Blood Loss 100 Other: Voiding Method Toilet Toilet # Voids 1 - Exam . PHYSICAL EXAMINATION: GENERAL: The patient is alert and oriented x3, not in any acute distress. Well developed, well nourished. HEENT: Pupils are round and equally reacting to light. EOMI. No scleral icterus. No conjunctival pallor. Normocephalic, atraumatic. No pharyngeal erythema. No thyromegaly. CARDIOVASCULAR: S1 and S2 present. No murmurs, rubs, or gallops. PULMONARY: Chest is clear to auscultation, no wheezing or crackles. ABDOMEN: Soft, nontender, nondistended, normoactive bowel sounds. No palpable organomegaly. MUSCULOSKELETAL: No joint swelling or deformity. Right knee is postsurgical effect EXTREMITIES: No cyanosis, clubbing, or pedal edema. NEUROLOGICAL: Gross neurological examination did not reveal any focal deficits. SKIN: No rashes. - Labs CBC & Chem 7: 10/08/18 07:04 Labs: Abnormal Lab Results - Last 24 Hours (Table) 10/07/18 10/07/18 10/07/18 Range/Units 16:11 20:09 21:09 WBC (3.8-10.6) k/uL Neutrophils # (1.3-7.7) k/uL POC Glucose (mg/dL) 184 H 240 H 228 H (75-99) mg/dL 10/08/18 10/08/18 Range/Units 07:04 07:19 WBC 11.7 H (3.8-10.6) k/uL Neutrophils # 9.9 H (1.3-7.7) k/uL POC Glucose (mg/dL) 142 H (75-99) mg/dL Assessment and Plan Plan: -Hypertension will hold off on anti-of his medications including diuretic therapy to avoid perioperative hypotension related to monitor the blood pressure -Status post right knee arthroplasty pain management due to prophylaxis per primary service patient is in aspirin 325 mg twice a day because of which I'll discontinue 81 mg aspirin. -Hyperlipidemia -Type 2 diabetes mellitus: Will use sliding scale insulin -Osteoarthritis -Depression For above-mentioned chronic with problems patient can be resumed on her medi cations
[2018-10-08] MEDS ORDERED: MULTIVITAMINS, THERA 1 EACH TAB PO SCH (14:26)
[2018-10-08 19:34] LABS: Hemoglobin A1C 6.6 % (4.0-6.0)
== END 2018-10-08 13:17 | disposition home health service (06) ==
LOC: OR 10:48 → 4SSUR 14:21 → OR 10-08 13:17
PROVIDERS: ATTEND Orthopaedic Surgery Sports Medicine
DX: M17.11 Unilateral primary osteoarthritis, right knee (principal); I10 Essential (primary) hypertension; H91.90 Unspecified hearing loss, unspecified ear; E11.9 Type 2 diabetes mellitus without complications; I08.1 Rheumatic disorders of both mitral and tricuspid valves; E78.5 Hyperlipidemia, unspecified; F41.9 Anxiety disorder, unspecified; E78.00 Pure hypercholesterolemia, unspecified; Z68.41 Body mass index [BMI] 40.0-44.9, adult; F32.9 Major depressive disorder, single episode, unspecified; Z90.49 Acquired absence of other specified parts of digestive tract; Z90.710 Acquired absence of both cervix and uterus; Z98.51 Tubal ligation status; Z80.0 Family history of malignant neoplasm of digestive organs; Z83.3 Family history of diabetes mellitus; Z80.1 Family history of malignant neoplasm of trachea, bronchus and lung; Z80.42 Family history of malignant neoplasm of prostate; Z82.3 Family history of stroke; Z82.49 Family history of ischemic heart disease and other diseases of the circulatory system; Z79.82 Long term (current) use of aspirin; Z79.84 Long term (current) use of oral hypoglycemic drugs; Z79.891 Long term (current) use of opiate analgesic; Z79.899 Other long term (current) drug therapy; Z88.8 Allergy status to other drugs, medicaments and biological substances
CPT/HCPCS: 97161; 85025; 88300; 83036; 73560; 27447; C1776; C1713; J2250; J0171; J1100; J0690 ×3; J2405; J2274; J3010; J1885; J2795; J2704; J0735

== ENCOUNTER → 2019-08-16 | Outpatient (CLI) | payer MEDICARE ==
--- NOTE | 2019-08-17 09:14 | MM ---
Reason for exam: screening (asymptomatic). Last mammogram was performed 3 years and 1 month ago. History: Patient is postmenopausal. Excisional biopsy of the right breast. Took estrogen for 11 years. Physical Findings: A clinical breast exam by your physician is recommended on an annual basis and results should be correlated with mammographic findings. MG 3D Screening Mammo W/Cad Bilateral CC and MLO view(s) were taken. Prior study comparison: July 24, 2016, bilateral MG 3d screening mammo w/cad. April 07, 2014, bilateral MG screening mammo w CAD. There are scattered fibroglandular densities. Stable benign calcifications. There is no discrete abnormality. No significant changes when compared with prior studies. ASSESSMENT: Benign, BI-RAD 2 RECOMMENDATION: Routine screening mammogram of both breasts in 1 year.
== END | disposition home or self-care (01) ==
LOC: RADMAMWWP 13:56
PROVIDERS: ATTEND Family Medicine
DX: Z12.31 Encounter for screening mammogram for malignant neoplasm of breast (principal); Z78.0 Asymptomatic menopausal state
CPT/HCPCS: 77063; 77067

== ENCOUNTER → 2020-08-21 | Outpatient (CLI) | payer MEDICARE ==
--- NOTE | 2020-08-23 14:25 | MM ---
Reason for exam: screening (asymptomatic). Last mammogram was performed 1 year ago. History: Patient is postmenopausal. Excisional biopsy of the right breast. Took hormonal contraceptives for 12 years. Took estrogen for 11 years. Physical Findings: A clinical breast exam by your physician is recommended on an annual basis and results should be correlated with mammographic findings. MG 3D Screening Mammo W/Cad Bilateral CC and MLO view(s) were taken. Prior study comparison: August 16, 2019, bilateral MG 3d screening mammo w/cad. July 24, 2016, bilateral MG 3d screening mammo w/cad. There are scattered fibroglandular densities. No significant changes when compared with prior studies. ASSESSMENT: Benign, BI-RAD 2 RECOMMENDATION: Routine screening mammogram of both breasts in 1 year.
== END | disposition home or self-care (01) ==
LOC: RADMAMWWP 14:32
PROVIDERS: ATTEND Family Medicine
DX: Z12.31 Encounter for screening mammogram for malignant neoplasm of breast (principal); Z78.0 Asymptomatic menopausal state; Z79.899 Other long term (current) drug therapy
CPT/HCPCS: 77063; 77067

== ENCOUNTER → 2021-01-09 | Outpatient (CLI) | payer MEDICARE ==
--- NOTE | 2021-01-09 12:16 | BD ---
EXAMINATION TYPE: Axial Bone Density DATE OF EXAM: 01/09/2021 COMPARISON: NONE CLINICAL HISTORY: Postmenopausal female. Height: 5 FT 2 1/2 IN Weight: 205 FRAX RISK QUESTIONS: Alcohol (3 or more units per day): NO Family History (Parent hip fracture): NO Glucocorticoids (More than 3mos): NO (Ex: prednisone, prednisolone, methylprednisolone, dexamethasone, and hydrocortisone). History of Fracture in Adulthood: NO Secondary Osteoporosis: 1. Type 1 Diabetes: TYPE 2 2. Hyperthyroidism: NO 3. Menopause before 45: YES 4. Malnutrition: NO 5. Chronic liver disease: NO Rheumatoid Arthritis: NO Current Tobacco Use: NO RISK FACTORS HISTORY OF: Surgery to Spine/Hip(right/left)/Wrist (right/left): NO Family History of Osteoporosis: NO Active: YES Diet low in dairy products/other sources of calcium: NO Postmenopausal woman: YES NO Take estrogen and/or progesterone medications: Lost more than 2 inches in height since high school: NO Frequent falls: NO Poor Health: GOOD Hyperparathyroidism: NO Adrenal Insufficiency: NO MEDICATIONS: Additional Medications: METFORMIN,CITALOPRAM,MEMANTINE,,ALPRAZOLAM,HYDROCHLOROTHIAZIDE, BABY ASPIRIN Additional History: EXAM MEASUREMENTS: Bone mineral densitometry was performed using the [employer] System. Bone mineral density as measured about the Lumbar spine is: ----- L1-L4(G/cm2): 1.407 T Score Values are as follows: ----- L2: 2.0 ----- L3: 1.7 ----- L4: 2.1 ----- L1-L4: 1.9 PREV NOT DONE HERE Bone mineral density about the R hip (g/cm2): 0.886 Bone mineral density about the L hip (g/cm2): 0.905 T Score values are as follows: -----R Neck: -1.1 -----L Neck: -1.0 -----R Total: 0.1 -----L Total: 1.0 PREV NOT DONE HERE IMPRESSION: Osteopenia (T Score between -2.5 and -1) femoral neck level right hip. There is slightly increased risk of fracture and the patient may be considered for treatment. Re-Screen 2-5 years. NOTE: T-SCORE=SD OF THE YOUNG ADULT MEAN.
== END | disposition home or self-care (01) ==
LOC: RADBDWWP 09:01
PROVIDERS: ATTEND Family Medicine
DX: M85.89 Other specified disorders of bone density and structure, multiple sites (principal); Z78.0 Asymptomatic menopausal state; Z79.84 Long term (current) use of oral hypoglycemic drugs; Z79.899 Other long term (current) drug therapy
CPT/HCPCS: 77080

== ENCOUNTER 2022-12-21 01:57 | Emergency (ER) | payer MEDICARE ==
[2022-12-21 02:10] VITALS: TEMP 97.9
[2022-12-21] MEDS ORDERED: methylPREDNISolone SOD SUCCI 125 MG/2 ML VIAL IV STA (02:11)
[2022-12-21] MEDS ORDERED: FAMOTIDINE 20 MG/2 ML VIAL IV STA (02:11)
[2022-12-21] MEDS ORDERED: diphenhydrAMINE 50 MG/ML 1 ML VIAL IVP STA (02:11)
--- NOTE | 2022-12-21 02:33 | ED ---
General Adult HPI - General Chief complaint: Allergic Reaction Stated complaint: Face and tongue swelling, Difficulty Breathing Time Seen by Provider: 12/21/22 02:10 Source: patient, family, RN notes reviewed, old records reviewed Mode of arrival: wheelchair Limitations: no limitations - History of Present Illness Initial comments: 77 -year-old female with acute tongue and lip swelling. Patient states that earlier in the evening she did have some strawberries which she has not had a long time. She does not have a previous ALLERGY to strawberries. She developed tongue and lip swelling with mild dyspnea. She is uncertain exactly what medication she is on but does not believe she is on lisinopril. She's had no recent medication changes. No rash. No vomiting - Related Data Home Medications Medication Instructions Recorded Confirmed Aspirin [Adult Low Dose Aspirin EC] 81 mg PO DAILY 11/07/16 09/29/18 Simvastatin [Zocor] 20 mg PO DAILY 11/07/16 10/07/18 metFORMIN HCL [Glucophage] 500 mg PO HS 11/07/16 10/07/18 ALPRAZolam [Xanax] 0.25 mg PO Q8HR PRN 04/22/17 09/29/18 Citalopram Hydrobromide 20 mg PO DAILY 04/22/17 10/07/18 [Citalopram HBr] Previous Rx's Medication Instructions Recorded Aspirin 325 mg PO BID #60 tab 10/08/18 Docusate [Colace] 100 mg PO BID #60 capsule 10/08/18 HYDROcodone/APAP 7.5-325MG [[place] 1 - 2 each PO Q6HR PRN #56 tab 10/08/18 7.5-325] Losartan Potassium [Cozaar] 50 mg PO DAILY #0 10/08/18 Famotidine [Pepcid] 20 mg PO DAILY #7 tablet 12/21/22 diphenhydrAMINE [Benadryl] 25 mg PO TID PRN #21 capsule 12/21/22 predniSONE 50 mg PO DAILY #5 tab 12/21/22 Allergies Allergy/AdvReac Type Severity Reaction Status Date / Time No Known Allergies Allergy Verified 12/21/22 02:03 Review of Systems ROS Statement: Those systems with pertinent positive or pertinent negative responses have been documented in the HPI. ROS Other: All systems not noted in ROS Statement are negative. Past Medical History Past Medical History: Diabetes Mellitus, GERD/Reflux, Hyperlipidemia, Hype rtension, Osteoarthritis (OA) Additional Past Medical History / Comment(s): arthritis rt knee, History of Any Multi-Drug Resistant Organisms: None Reported Past Surgical History: Breast Surgery, Cholecystectomy, Heart Catheterization, Hysterectomy, Tubal Ligation Additional Past Surgical History / Comment(s): rt breast biopsy, rt carotid endartectomy Past Anesthesia/Blood Transfusion Reactions: No Reported Reaction Additional Past Anesthesia/Blood Transfusion Reaction / Comment(s): claustrophobic Past Psychological History: Anxiety, Depression Smoking Status: Never smoker Past Alcohol Use History: None Reported Past Drug Use History: None Reported - Past Family History Mother Family Medical History: No Reported History Father Family Medical History: Cancer General Exam Limitations: no limitations General appearance: alert, in no apparent distress Head exam: Present: atraumatic, normocephalic Eye exam: Present: normal appearance, PERRL ENT exam: Present: other (Normal oropharynx, tongue swelling and right lower lip swelling consistent with angioedema) Respiratory exam: Present: normal lung sounds bilaterally. Absent: respiratory distress, wheezes Cardiovascular Exam: Present: regular rate, normal rhythm GI/Abdominal exam: Present: soft. Absent: distended, tenderness Extremities exam: Present: normal inspection, normal capillary refill Neurological exam: Present: alert, oriented X3 Psychiatric exam: Present: normal affect, normal mood Skin exam: Present: warm, dry, intact Course Vital Signs 12/21/22 12/21/22 12/21/22 02:01 02:50 02:57 Temperature 97.9 F Pulse Rate 69 52 L Respiratory 18 17 17 Rate Blood Pressure 135/68 181/80 O2 Sat by Pulse 97 95 Oximetry 12/21/22 12/21/22 03:00 03:10 Temperature Pulse Rate 55 L 54 L Respiratory 18 18 Rate Blood Pressure 175/88 184/67 O2 Sat by Pulse 95 94 L Oximetry Medical Decision Making - Medical Decision Making Was pt. sent in by a medical professional or institution (, PA, EXERCISE INSTRUCTOR, urgent care, hospital, or detention...) When possible be specific @ -No Did you speak to anyone other than the patient for history (EMS, parent, family, police, friend...)? What history was obtained from this source @ -No Did you review nursing and triage notes (agree or disagree)? Why? @ -I reviewed and agree with nursing and triage notes Were old charts reviewed (outside hosp., previous admission, EMS record, old EKG, old radiological studies, urgent care reports/EKG's, detention records)? Report findings @ -No old charts were reviewed Differential Diagnosis (chest pain, altered mental status, abdominal pain women, abdominal pain men, vaginal bleeding, weakness, fever, dyspnea, syncope, headache, dizziness, GI bleed, back pain, seizure, CVA, palpatations, mental health, musculoskeletal)? @ -ALLERGIC reaction, angioedema EKG interpreted by me (3pts min.). @ -As above X-rays interpreted by me (1pt min.). @ -None done CT interpreted by me (1pt min.). @ -None done U/S interpreted by me (1pt. min.). @ -None done What testing was considered but not performed or refused? (CT, X-rays, U/S, labs)? Why? @ -None What meds were considered but not given or refused? Why? @ -None Did you discuss the management of the patient with other professionals (professionals i.e. , PA, EXERCISE INSTRUCTOR, lab, RT, psych nurse, psychosocial rehabilitation counselor, oil tanker captain, teacher, commanding officer homicide squad, ed case manager)? Give summary @ -No Was smoking cessation discussed for >3mins.? @ -No Was critical care preformed (if so, how long)? @ -No Were there social determinants of health that impacted care today? How? (Homele ssness, low income, unemployed, alcoholism, drug addiction, transportation, low edu. Level, literacy, decrease access to med. care, group home, rehab)? @ -No Was there de-escalation of care discussed even if they declined (Discuss DNR or withdrawal of care, Hospice)? DNR status @ -No What co-morbidities impacted this encounter? (DM, HTN, Smoking, COPD, CAD, Cancer, CVA, ARF, Chemo, Hep., AIDS, mental health diagnosis, sleep apnea, morbid obesity)? @ -[Hypertension Was patient admitted / discharged? Hospital course, mention meds given and route, prescriptions, significant lab abnormalities, going to OR and other pertinent info. @ 77-year-old female with lip and tongue swelling. Patient is not on an MARICARMEN inhibitor by medical record and the patient does not believe she is on an MARICARMEN inhibitor. She has lip and tongue swelling which is concerning for both ALLERGIC and not ALLERGIC angioedema. She is given a dose of sign Medrol, Benadryl, Pepcid in the emergency department and has significant improvement almost complete resolution of symptoms. She is very eager for discharge. She will double check her medications at home. She will avoid strawberries in case this was the ALLERGIC factor. She's been prescribed steroids, Benadryl, Pepcid. Strict return parameters were discussed. Undiagnosed new problem with uncertain prognosis? @ -No Drug Therapy requiring intensive monitoring for toxicity (Heparin, Nitro, Insulin, Cardizem)? @ -No Were any procedures done? @ -No Diagnosis/symptom? @ -ALLERGIC reaction Acute, or Chronic, or Acute on Chronic? @ -[Acute Uncomplicated (without systemic symptoms) or Complicated (systemic symptoms)? @ -default Side effects of treatment? @ -No Exacerbation, Progression, or Severe Exacerbation? @ -No Poses a threat to life or bodily function? How? (Chest pain, [place], [place], pneumonia, PE, COPD, DKA, ARF, appy, cholecystitis, CVA, Diverticulitis, Homicidal, Suicidal, threat to staff... and all critical care pts) @ -Yes, airway compromise, ALLERGIC reaction, anaphylaxis - Lab Data Result diagrams: 12/21/22 02:45 12/21/22 02:45 Lab Results 12/21/22 12/21/22 Range/Units 02:45 02:45 WBC 8.3 (3.8-10.6) k/uL RBC 4.51 (3.80-5.40) m/uL Hgb 13.7 (11.4-16.0) gm/dL Hct 41.0 (34.0-46.0) % MCV 91.0 (80.0-100.0) fL MCH 30.4 (25.0-35.0) pg MCHC 33.4 (31.0-37.0) g/dL RDW 13.5 (11.5-15.5) % Plt Count 258 (150-450) k/uL MPV 7.7 Neutrophils % 61 % Lymphocytes % 30 % Monocytes % 4 % Eosinophils % 4 % Basophils % 0 % Neutrophils # 5.1 (1.3-7.7) k/uL Lymphocytes # 2.5 (1.0-4.8) k/uL Monocytes # 0.3 (0-1.0) k/uL Eosinophils # 0.3 (0-0.7) k/uL Basophils # 0.0 (0-0.2) k/uL Sodium 137 (137-145) mmol/L Potassium 3.4 L (3.5-5.1) mmol/L Chloride 103 (98-107) mmol/L Carbon Dioxide 24 (22-30) mmol/L Anion Gap 10 mmol/L BUN 15 (7-17) mg/dL Creatinine 0.61 (0.52-1.04) mg/dL Est GFR (CKD-EPI)AfAm >90 (>60 ml/min/1.73 sqM) Est GFR (CKD-EPI)NonAf 88 (>60 ml/min/1.73 sqM) Glucose 144 H (74-99) mg/dL Calcium 9.0 (8.4-10.2) mg/dL Total Bilirubin 0.5 (0.2-1.3) mg/dL AST 28 (14-36) U/L ALT 30 (4-34) U/L Alkaline Phosphatase 77 (38-126) U/L Total Protein 6.8 (6.3-8.2) g/dL Albumin 4.0 (3.5-5.0) g/dL Disposition Clinical Impression: Angioedema, Allergic reaction Disposition: HOME SELF-CARE Condition: Good Instructions (If sedation given, give patient instructions): Food Allergy (ED), General Allergic Reaction (ED) Prescriptions: diphenhydrAMINE [Benadryl] 25 mg PO TID PRN #21 capsule PRN Reason: Allergic Reaction Famotidine [Pepcid] 20 mg PO DAILY #7 tablet predniSONE 50 mg PO DAILY #5 tab Is patient prescribed a controlled substance at d/c from ED?: No Referrals: Sandrita Hobson MD [Primary Care Provider] - 1-2 days Time of Disposition: 04:38
[2022-12-21 03:07] LABS: Basophils % (A) 0 %; Eosinophils # (A) 0.3 k/uL (0-0.7); Eosinophils % (A) 4 %; HGB 13.7 gm/dL (11.4-16.0); Lymphocytes # (A) 2.5 k/uL (1.0-4.8); Lymphocytes % (A) 30 %; MCH 30.4 pg (25.0-35.0); MCHC 33.4 g/dL (31.0-37.0); Mean Platelet Volume 7.7; Monocytes # (A) 0.3 k/uL (0-1.0); Monocytes % (A) 4 %; Neutrophils # (A) 5.1 k/uL (1.3-7.7); Neutrophils % (A) 61 %; Platelet Count 258 k/uL (150-450); RBC 4.51 m/uL (3.80-5.40); RDW 13.5 % (11.5-15.5); WBC 8.3 k/uL (3.8-10.6)
[2022-12-21 03:15] LABS: ALT 30 U/L (4-34); AST 28 U/L (14-36); African American GFR (CKD) >90 (>60 ml/min/1.73 sqM); Alkaline Phosphatase 77 U/L (38-126); Anion Gap 10 mmol/L; Blood Urea Nitrogen 15 mg/dL (7-17); Carbon Dioxide 24 mmol/L (22-30); Chloride 103 mmol/L (98-107); Glucose 144 mg/dL (74-99); Non-African American GFR(CKD) 88 (>60 ml/min/1.73 sqM); Potassium 3.4 mmol/L (3.5-5.1); Sodium 137 mmol/L (137-145); Total Bilirubin 0.5 mg/dL (0.2-1.3); Total Protein 6.8 g/dL (6.3-8.2)
[2022-12-21 03:30] VITALS: RESP 18
[2022-12-21 04:54] VITALS: BP 147/97; PULSE 55
== END 2022-12-21 04:59 | disposition home or self-care (01) ==
LOC: EC 01:57
DX: T78.3XXA Angioneurotic edema, initial encounter (principal); T78.1XXA Other adverse food reactions, not elsewhere classified, initial encounter; E11.9 Type 2 diabetes mellitus without complications; E78.5 Hyperlipidemia, unspecified; I10 Essential (primary) hypertension; M19.90 Unspecified osteoarthritis, unspecified site; F41.9 Anxiety disorder, unspecified; F32.A Depression, unspecified; Z79.82 Long term (current) use of aspirin; Z79.899 Other long term (current) drug therapy; Z79.84 Long term (current) use of oral hypoglycemic drugs
CPT/HCPCS: 36415; 80053; 85025; 99283; 96374; 96375 ×2; J1200; J2930; J3490

== ENCOUNTER 2023-05-28 18:53 | Emergency (ER) | payer MEDICARE ==
[2023-05-28 19:30] VITALS: RESP 16; TEMP 98.7
--- NOTE | 2023-05-28 19:40 | ED ---
Weakness HPI - General Chief complaint: Weakness Stated complaint: weakness rash all over body Time Seen by Provider: 05/28/23 19:02 Source: patient, RN notes reviewed, old records reviewed Mode of arrival: wheelchair Limitations: no limitations - History of Present Illness Initial comments: This is a 78-year-old female to the ER for evaluation today. Patient presents today for evaluation regards to weakness. Patient has severe weakness on arrival in the ER. Patient is here for evaluation regards to rash she has had a rash on her arms back legs it feels like a hives reaction is itchy but at times she states she feels feverish, she has has not been feeling well for 3 days Benadryl is not helping patient 3 weeks ago did have left knee replacement MD Complaint: generalized weakness, focal weakness, lack of energy, difficulty walking -: days(s) (3) Location: generalized Severity: mild Severity scale (1-10): 2 Consistency: constant Improves with: none Worsens with: none Context: recent illness, history of similar Associated Symptoms: denies other symptoms - Related Data Home Medications Medication Instructions Recorded Confirmed Aspirin [Adult Low Dose Aspirin EC] 81 mg PO DAILY 11/07/16 09/29/18 Simvastatin [Zocor] 20 mg PO DAILY 11/07/16 10/07/18 metFORMIN HCL [Glucophage] 500 mg PO HS 11/07/16 10/07/18 ALPRAZolam [Xanax] 0.25 mg PO Q8HR PRN 04/22/17 09/29/18 Citalopram Hydrobromide 20 mg PO DAILY 04/22/17 10/07/18 [Citalopram HBr] Previous Rx's Medication Instructions Recorded Aspirin 325 mg PO BID #60 tab 10/08/18 Docusate [Colace] 100 mg PO BID #60 capsule 10/08/18 HYDROcodone/APAP 7.5-325MG [[place] 1 - 2 each PO Q6HR PRN #56 tab 10/08/18 7.5-325] Losartan Potassium [Cozaar] 50 mg PO DAILY #0 10/08/18 Famotidine [Pepcid] 20 mg PO DAILY 7 Days #7 tablet 12/21/22 diphenhydrAMINE [Benadryl] 25 mg PO TID PRN 7 Days #21 capsule 12/21/22 predniSONE 50 mg PO DAILY 5 Days #5 tab 10/28/23 hydrOXYzine HCL [Atarax] 25 mg PO TID PRN #15 tab 05/28/23 Allergies Allergy/AdvReac Type Severity Reaction Status Date / Time No Known Allergies Allergy Verified 12/21/22 02:03 Review of Systems ROS Statement: Those systems with pertinent positive or pertinent negative responses have been documented in the HPI. ROS Other: All systems not noted in ROS Statement are negative. Past Medical History Past Medical History: Diabetes Mellitus, GERD/Reflux, Hyperlipidemia, Hypertension, Osteoarthritis (OA) Additional Past Medical History / Comment(s): arthritis rt knee, History of Any Multi-Drug Resistant Organisms: None Reported Past Surgical History: Breast Surgery, Cholecystectomy, Heart Catheterization, Hysterectomy, Tubal Ligation Additional Past Surgical History / Comment(s): rt breast biopsy, rt carotid endartectomy Past Anesthesia/Blood Transfusion Reactions: No Reported Reaction Additional Past Anesthesia/Blood Transfusion Reaction / Comment(s): claustrophobic Past Psychological History: Anxiety, Depression Smoking Status: Never smoker Past Alcohol Use History: None Reported Past Drug Use History: None Reported - Past Family History Mother Family Medical History: No Reported History Father Family Medical History: Cancer General Exam Limitations: no limitations General appearance: alert, in no apparent distress Head exam: Present: atraumatic, normocephalic, normal inspection Eye exam: Present: normal appearance, PERRL, EOMI. Absent: scleral icterus, conjunctival injection, periorbital swelling ENT exam: Present: normal exam, mucous membranes moist Neck exam: Present: normal inspection. Absent: tenderness, meningismus, lymphadenopathy Respiratory exam: Present: normal lung sounds bilaterally. Absent: respiratory distress, wheezes, rales, rhonchi, stridor Cardiovascular Exam: Present: regular rate, normal rhythm, normal heart sounds. Absent: systolic murmur, diastolic murmur, rubs, gallop, clicks GI/Abdominal exam: Present: soft, normal bowel sounds. Absent: distended, tenderness, guarding, rebound, rigid Extremities exam: Present: normal inspection, full ROM, normal capillary refill. Absent: tenderness, pedal edema, joint swelling, calf tenderness Back exam: Present: normal inspection Neurological exam: Present: alert, oriented X3, CN II-XII intact Psychiatric exam: Present: normal affect, normal mood Skin exam: Present: warm, dry, intact, normal color. Absent: rash Course Vital Signs 05/28/23 05/28/23 18:56 22:39 Temperature 98.7 F Pulse Rate 83 72 Respiratory 16 16 Rate Blood Pressure 163/79 157/60 O2 Sat by Pulse 98 95 Oximetry - Reevaluation(s) Reevaluation #1: 05/28/23 19:35 medical record is reviewed Reevaluation #2: 05/28/23 19:36 Patient symptoms are unchanged Reevaluation #3: Patient informed of results and questions answered Reevaluation #4: Was pt. sent in by a medical professional or institution (, JR, ENDOSCOPIC TECHNICIAN, urgent care, hospital, or correction...) When possible be specific @ -no Did you speak to anyone other than the patient for history (EMS, parent, family, police, friend...)? What history was obtained from this source @ -no Did you review nursing and triage notes (agree or disagree)? Why? @ -agree Are old charts reviewed (outside hosp., previous admission, EMS record, old EKG, old radiological studies, urgent care reports/EKG's, correction records)? Report findings @ -yes Differential Diagnosis (chest pain, altered mental status, abdominal pain women, abdominal pain men, vaginal bleeding, weakness, fever, dyspnea, syncope, headache, dizziness, GI bleed, back pain, seizure, CVA, palpatations, mental health, musculoskeletal)? @ -prior EKG interpreted by me (3pts min.). @ -yes X-rays interpreted by me (1pt min.). @ -no CT interpreted by me (1pt min.). @ -no U/S interpreted by me (1pt. min.). @ -Yes negative for acute disease What testing was considered but not performed or refused? (CT, X-rays, U/S, labs)? Why? @ -none What meds were considered but not given or refused? Why? @ -none Did you discuss the management of the patient with other professionals (professionals i.e. JR Armstrong, ENDOSCOPIC TECHNICIAN, lab, RT, psych nurse, rn social services, resource room special education teacher, teacher, medical scientific officer, continuous pillowcase cutter)? Give summary @ -no Was smoking cessation discussed for >3mins.? @ -no Was critical care preformed (if so, how long)? @ -no Were there social determinants of health that impacted care today? How? (Homelessness, low income, unemployed, alcoholism, drug addiction, tr ansportation, low edu. Level, literacy, decrease access to med. care, alf, rehab)? @ -none Was there de-escalation of care discussed even if they declined (Discuss DNR or withdrawal of care, Hospice)? DNR status @ -no What co-morbidities impacted this encounter? (DM, HTN, Smoking, COPD, CAD, Canc er, CVA, ARF, Chemo, Hep., AIDS, mental health diagnosis, sleep apnea, morbid obesity)? @ -none Was patient admitted / discharged? Hospital course, mention meds given and route, prescriptions, significant lab abnormalities, going to OR and other pertinent info. @ - 78 female to ER with evaluation of weakness dehydration high risk, patient has no acute findings here in the emergency department but will be discharged home she does not want further evaluation here in the hospital Discharge Undiagnosed new problem with uncertain prognosis? @ -no Drug Therapy requiring intensive monitoring for toxicity (Heparin, Nitro, Insulin, Cardizem)? @ -no Were any procedures done? @ -no Diagnosis/symptom? @ -Hives weakness dyspnea abdominal pain body aches and pains Acute, or Chronic, or Acute on Chronic? @ -Acute Uncomplicated (without systemic symptoms) or Complicated (systemic symptoms)? @ -Complicated Side effects of treatment? @ -no Exacerbation, Progression, or Severe Exacerbation? @ -exacerbation Poses a threat to life or bodily function? How? (Chest pain, [place], [place], pneumonia, PE, COPD, DKA, ARF, appy, cholecystitis, CVA, Diverticulitis, Homicidal, Suicidal, threat to staff... and all critical care pts) @ -yes significant extreme of age EKG Findings - EKG Comments: EKG Findings:: EKG is sinus 66 OH 162 QRS 128 QTc is 440 - EKG Results: EKG: interpreted by MARGARITO Medical Decision Making - Medical Decision Making 78 female to ER with evaluation of weakness dehydration high risk, patient has no acute findings here in the emergency department but will be discharged home she does not want further evaluation here in the hospital - Lab Data Result diagrams: 05/28/23 19:50 05/28/23 20:00 Lab Results 05/28/23 05/28/23 05/28/23 Range/Units 19:50 20:00 20:00 WBC 9.0 (3.8-10.6) k/uL RBC 4.31 (3.80-5.40) m/uL Hgb 12.5 (11.4-16.0) gm/dL Hct 38.9 (34.0-46.0) % MCV 90.2 (80.0-100.0) fL MCH 28.9 (25.0-35.0) pg MCHC 32.1 (31.0-37.0) g/dL RDW 13.3 (11.5-15.5) % Plt Count 382 (150-450) k/uL MPV 8.0 Neutrophils % 69 % Lymphocytes % 21 % Monocytes % 6 % Eosinophils % 2 % Basophils % 0 % Neutrophils # 6.2 (1.3-7.7) k/uL Lymphocytes # 1.9 (1.0-4.8) k/uL Monocytes # 0.5 (0-1.0) k/uL Eosinophils # 0.1 (0-0.7) k/uL Basophils # 0.0 (0-0.2) k/uL PT (10.0-12.5) sec INR (<1.2) APTT (22.0-30.0) sec D-Dimer (<0.60) mg/L FEU Sodium 137 (137-145) mmol/L Potassium 3.2 L (3.5-5.1) mmol/L Chloride 102 (98-107) mmol/L Carbon Dioxide 28 (22-30) mmol/L Anion Gap 7 mmol/L BUN 18 H (7-17) mg/dL Creatinine 0.69 (0.52-1.04) mg/dL Est GFR (CKD-EPI)AfAm >90 (>60 ml/min/1.73 sqM) Est GFR (CKD-EPI)NonAf 84 (>60 ml/min/1.73 sqM) Glucose 123 H (74-99) mg/dL Calcium 9.0 (8.4-10.2) mg/dL Phosphorus 3.2 (2.5-4.5) mg/dL Magnesium 1.5 L (1.6-2.3) mg/dL Total Bilirubin 0.4 (0.2-1.3) mg/dL AST 29 (14-36) U/L ALT 28 (4-34) U/L Alkaline Phosphatase 85 (38-126) U/L Troponin I <0.012 (0.000-0.034) ng/mL C-Reactive Protein 1.9 H (<1.0) mg/dL NT-Pro-B Natriuret Pep 199 pg/mL Total Protein 6.5 (6.3-8.2) g/dL Albumin 3.6 (3.5-5.0) g/dL Influenza Type A (PCR) (Not Detectd) Influenza Type B (PCR) (Not Detectd) RSV (PCR) (Not Detectd) SARS-CoV-2 (PCR) (Not Detectd) 05/28/23 05/28/23 Range/Units 20:05 22:38 WBC (3.8-10.6) k/uL RBC (3.80-5.40) m/uL Hgb (11.4-16.0) gm/dL Hct (34.0-46.0) % MCV (80.0-100.0) fL MCH (25.0-35.0) pg MCHC (31.0-37.0) g/dL RDW (11.5-15.5) % Plt Count (150-450) k/uL MPV Neutrophils % % Lymphocytes % % Monocytes % % Eosinophils % % Basophils % % Neutrophils # (1.3-7.7) k/uL Lymphocytes # (1.0-4.8) k/uL Monocytes # (0-1.0) k/uL Eosinophils # (0-0.7) k/uL Basophils # (0-0.2) k/uL PT 10.9 (10.0-12.5) sec INR 1.0 (<1.2) APTT 22.0 (22.0-30.0) sec D-Dimer 6.89 H (<0.60) mg/L FEU Sodium (137-145) mmol/L Potassium (3.5-5.1) mmol/L Chloride (98-107) mmol/L Carbon Dioxide (22-30) mmol/L Anion Gap mmol/L BUN (7-17) mg/dL Creatinine (0.52-1.04) mg/dL Est GFR (CKD-EPI)AfAm (>60 ml/min/1.73 sqM) Est GFR (CKD-EPI)NonAf (>60 ml/min/1.73 sqM) Glucose (74-99) mg/dL Calcium (8.4-10.2) mg/dL Phosphorus (2.5-4.5) mg/dL Magnesium (1.6-2.3) mg/dL Total Bilirubin (0.2-1.3) mg/dL AST (14-36) U/L ALT (4-34) U/L Alkaline Phosphatase (38-126) U/L Troponin I (0.000-0.034) ng/mL C-Reactive Protein (<1.0) mg/dL NT-Pro-B Natriuret Pep pg/mL Total Protein (6.3-8.2) g/dL Albumin (3.5-5.0) g/dL Influenza Type A (PCR) Not Detected (Not Detectd) Influenza Type B (PCR) Not Detected (Not Detectd) RSV (PCR) Not Detected (Not Detectd) SARS-CoV-2 (PCR) Not Detected (Not Detectd) - EKG Data -: EKG Interpreted by Me - Radiology Data Radiology results: report reviewed (Ultrasound venous duplex is negative for acute disease), image reviewed Disposition Clinical Impression: Dehydration, Weakness, Hives Disposition: HOME SELF-CARE Condition: Good Instructions (If sedation given, give patient instructions): Urticaria (ED), Weakness (ED) Prescriptions: hydrOXYzine HCL [Atarax] 25 mg PO TID PRN #15 tab PRN Reason: Itching Is patient prescribed a controlled substance at d/c from ED?: No Referrals: Sandrita Hobson MD [Primary Care Provider] - 1-2 days Time of Disposition: 22:45
[2023-05-28] MEDS: SODIUM CHLORIDE 0.9% 500 ML 500 ML IV STA (19:52)
[2023-05-28 20:10] LABS: Basophils % (A) 0 %; Eosinophils # (A) 0.1 k/uL (0-0.7); Eosinophils % (A) 2 %; HCT 38.9 % (34.0-46.0); HGB 12.5 gm/dL (11.4-16.0); Lymphocytes # (A) 1.9 k/uL (1.0-4.8); Lymphocytes % (A) 21 %; MCH 28.9 pg (25.0-35.0); MCHC 32.1 g/dL (31.0-37.0); MCV 90.2 fL (80.0-100.0); Monocytes # (A) 0.5 k/uL (0-1.0); Monocytes % (A) 6 %; Neutrophils # (A) 6.2 k/uL (1.3-7.7); Neutrophils % (A) 69 %; Platelet Count 382 k/uL (150-450); RBC 4.31 m/uL (3.80-5.40); RDW 13.3 % (11.5-15.5)
[2023-05-28] MEDS: FAMOTIDINE 20 MG/2 ML VIAL IV STA (20:26)
[2023-05-28] MEDS: methylPREDNISolone SOD SUCCI 125 MG/2 ML VIAL IV STA (20:26)
[2023-05-28] MEDS: diphenhydrAMINE 50 MG/ML 1 ML VIAL IVP STA (20:27)
[2023-05-28 20:49] LABS: Prothrombin Time 10.9 sec (10.0-12.5)
[2023-05-28 20:54] LABS: ALT 28 U/L (4-34); AST 29 U/L (14-36); African American GFR (CKD) >90 (>60 ml/min/1.73 sqM); Albumin 3.6 g/dL (3.5-5.0); Alkaline Phosphatase 85 U/L (38-126); Anion Gap 7 mmol/L; Blood Urea Nitrogen 18 mg/dL (7-17); Carbon Dioxide 28 mmol/L (22-30); Chloride 102 mmol/L (98-107); Glucose 123 mg/dL (74-99); Magnesium 1.5 mg/dL (1.6-2.3); Non-African American GFR(CKD) 84 (>60 ml/min/1.73 sqM); Phosphorus 3.2 mg/dL (2.5-4.5); Potassium 3.2 mmol/L (3.5-5.1); Sodium 137 mmol/L (137-145); Total Bilirubin 0.4 mg/dL (0.2-1.3); Total Protein 6.5 g/dL (6.3-8.2)
[2023-05-28 21:01] LABS: NT-Pro-B-Type Natriuretic Pept 199 pg/mL
[2023-05-28 21:40] LABS: C Reactive Protein 1.9 mg/dL (<1.0)
[2023-05-28] MEDS: POTASSIUM BICARBONATE/CIT AC 20 MEQ TABLET.EFF PO ONE (22:33)
[2023-05-28] MEDS: KETOROLAC 15 MG/ML 1 ML VIAL IVP STA (22:33)
[2023-05-28] MEDS: DEXAMETHASONE SOD PHOSPHATE 10 MG/ML 1 ML VIAL IVP STA (22:54)
[2023-05-28] MEDS: hydrOXYzine HCL 25 MG TAB PO STA (22:57)
[2023-05-28] MEDS ORDERED: MAGNESIUM OXIDE 400 MG TAB PO STA ×2 (23:08)
[2023-05-28 23:10] VITALS: BP 157/60; PULSE 72
--- NOTE | 2023-05-28 23:21 | US ---
EXAMINATION TYPE: US venous doppler duplex LE LT DATE OF EXAM: 05/28/2023 8:57 PM COMPARISON: NONE CLINICAL INDICATION: Female, 78 years old with history of dvt; redness in leg without pain. Pain in a nkle on and off. No hx of DVT. Not on blood thinners SIDE PERFORMED: Left TECHNIQUE: The lower extremity deep venous system is examined utilizing real time linear array sonog nenita with graded compression, doppler sonography and color-flow sonography. VESSELS IMAGED: Common Femoral Vein Deep Femoral Vein Greater Saphenous Vein * Femoral Vein Popliteal Vein Small Saphenous Vein * Proximal Calf Veins (* superficial vessels) There is normal flow, compressibility, vascular waveforms of the imaged vessels. Left Leg: No evidence for DVT IMPRESSION: No evidence of left lower extremity DVT.
== END 2023-05-28 23:08 | disposition home or self-care (01) ==
LOC: EC 18:53
DX: E86.0 Dehydration (principal); R53.1 Weakness; L50.9 Urticaria, unspecified; R06.00 Dyspnea, unspecified; R10.9 Unspecified abdominal pain; M79.661 Pain in right lower leg
CPT/HCPCS: 99285; 96374; 96375 ×3; 96361; 36415; 93005; 85379; 83880; 80053; 83735; 84100; 84484; 85025; 85610; 85730; 86140; 87040; 87636; 93971; J1200; J1100; J2930; J3490

== ENCOUNTER 2023-06-07 07:24 | Emergency (ER) | payer MEDICARE ==
[2023-06-07 08:05] VITALS: RESP 18
--- NOTE | 2023-06-07 08:28 | ED ---
Skin/Abscess/FB HPI - General Chief complaint: Skin/Abscess/Foreign Body Stated complaint: rash Time Seen by Provider: 06/07/23 08:00 Source: patient, RN notes reviewed Mode of arrival: ambulatory Limitations: no limitations - History of Present Illness Initial comments: 78-year-old female presenting with a rash x 3 weeks. States the rash is itchy and present on neck, chest, back, abdomen, buttocks. States she was here 3 weeks ago for similar rash. She was given a medication she cannot recall the name of that improved the rash. She followed up with her PCP yesterday who referred her to an multiple wire sawyer. She states she is here because she could not get into the multiple wire sawyer until July 10 and she is concerned that she is still having the rash. She denies lip/tongue swelling, shortness of breath, chest pain, fever, chills, recent travel. Denies new medications, lotions, soaps, detergents. Denies any known allergies or triggers. Denies URI symptoms. She has a history of type 2 diabetes which she takes metformin for however she does not take insulin and states her blood glucose levels are well-controlled. - Related Data Home Medications Medication Instructions Recorded Confirmed Aspirin [Adult Low Dose Aspirin EC] 81 mg PO DAILY 11/07/16 09/29/18 Simvastatin [Zocor] 20 mg PO DAILY 11/07/16 10/07/18 metFORMIN HCL [Glucophage] 500 mg PO HS 11/07/16 10/07/18 ALPRAZolam [Xanax] 0.25 mg PO Q8HR PRN 04/22/17 09/29/18 Citalopram Hydrobromide 20 mg PO DAILY 04/22/17 10/07/18 [Citalopram HBr] Previous Rx's Medication Instructions Recorded Aspirin 325 mg PO BID #60 tab 10/08/18 Docusate [Colace] 100 mg PO BID #60 capsule 10/08/18 HYDROcodone/APAP 7.5-325MG [Maunie 1 - 2 each PO Q6HR PRN #56 tab 10/08/18 7.5-325] Losartan Potassium [Cozaar] 50 mg PO DAILY #0 10/08/18 Famotidine [Pepcid] 20 mg PO DAILY 7 Days #7 tablet 12/21/22 diphenhydrAMINE [Benadryl] 25 mg PO TID PRN 7 Days #21 capsule 12/21/22 predniSONE 50 mg PO DAILY 5 Days #5 tab 12/21/22 hydrOXYzine HCL [Atarax] 25 mg PO TID PRN #15 tab 05/28/23 predniSONE [Deltasone] 40 mg PO DAILY #10 tab 06/07/23 Allergies Allergy/AdvReac Type Severity Reaction Status Date / Time No Known Allergies Allergy Verified 06/07/23 07:34 Review of Systems ROS Statement: Those systems with pertinent positive or pertinent negative responses have been documented in the HPI. ROS Other: All systems not noted in ROS Statement are negative. Past Medical History Past Medical History: Diabetes Mellitus, GERD/Reflux, Hyperlipidemia, Hypertension, Osteoarthritis (OA) Additional Past Medical History / Comment(s): arthritis rt knee, History of Any Multi-Drug Resistant Organisms: None Reported Past Surgical History: Breast Surgery, Cholecystectomy, Heart Catheterization, Hysterectomy, Tubal Ligation Additional Past Surgical History / Comment(s): rt breast biopsy, rt carotid endartectomy Past Anesthesia/Blood Transfusion Reactions: No Reported Reaction Additional Past Anesthesia/Blood Transfusion Reaction / Comment(s): claustrophobic Past Psychological History: Anxiety, Depression Smoking Status: Never smoker Past Alcohol Use History: None Reported Past Drug Use History: None Reported - Past Family History Mother Family Medical History: No Reported History Father Family Medical History: Cancer General Exam Limitations: no limitations General appearance: alert, in no apparent distress Head exam: Present: atraumatic, normocephalic, normal inspection Eye exam: Present: normal appearance, PERRL, EOMI. Absent: scleral icterus, conjunctival injection, periorbital swelling ENT exam: Present: normal exam, mucous membranes moist, other (No lip or tongue edema) Neck exam: Present: normal inspection. Absent: tenderness, meningismus, lymphadenopathy Respiratory exam: Present: normal lung sounds bilaterally. Absent: respiratory distress, wheezes, rales, rhonchi, stridor Cardiovascular Exam: Present: regular rate, normal rhythm, normal heart sounds. Absent: systolic murmur, diastolic murmur, rubs, gallop, clicks Neurological exam: Present: alert, oriented X3, CN II-XII intact Psychiatric exam: Present: normal affect, normal mood Skin exam: Present: warm, dry, intact, normal color, rash (Diffuse erythematous welts present on neck, chest, abdomen, back. No tenderness to palpation or drainage present.) Course Vital Signs 06/07/23 07:28 Temperature 97.6 F Pulse Rate 82 Respiratory 18 Rate Blood Pressure 117/66 O2 Sat by Pulse 98 Oximetry Medical Decision Making - Medical Decision Making Was pt. sent in by a medical professional or institution (JR Armstrong, FULL STACK SOFTWARE ENGINEER, urgent care, hospital, or [place] health [facility] facility...) When possible be specific @ -No Did you speak to anyone other than the patient for history (EMS, parent, family, police, friend...)? What history was obtained from this source @ -No Did you review nursing and triage notes (agree or disagree)? Why? @ -I reviewed and agree with nursing and triage notes Were old charts reviewed (outside hosp., previous admission, EMS record, old EKG, old radiological studies, urgent care reports/EKG's, [place] health care facility records)? Report findings @ -No old charts were reviewed Differential Diagnosis (chest pain, altered mental status, abdominal pain women, abdominal pain men, vaginal bleeding, weakness, fever, dyspnea, syncope, headache, dizziness, GI bleed, back pain, seizure, CVA, palpatations, mental health, musculoskeletal)? @ -Allergic reaction, angioedema, viral rash, cellulitis, scabies EKG interpreted by me (3pts min.). @ -None X-rays interpreted by me (1pt min.). @ -None done CT interpreted by me (1pt min.). @ -None done U/S interpreted by me (1pt. min.). @ -None done What testing was considered but not performed or refused? (CT, X-rays, U/S, labs)? Why? @ -None What meds were considered but not given or refused? Why? @ -None Did you discuss the management of the patient with other professionals (professionals i.e. JR Armstrong, FULL STACK SOFTWARE ENGINEER, lab, RT, psych nurse, medical social worker, meat team lead, teacher, assurance officer, high risk case manager)? Give summary @ -No Was smoking cessation discussed for >3mins.? @ -No Was critical care preformed (if so, how long)? @ -No Were there social determinants of health that impacted care today? How? (Homelessness, low income, unemployed, alcoholism, drug addiction, transportation, low edu. Level, literacy, decrease access to med. care, skilled nursing, rehab)? @ -No Was there de-escalation of care discussed even if they declined (Discuss DNR or withdrawal of care, Hospice)? DNR status @ -No What co-morbidities impacted this encounter? (DM, HTN, Smoking, COPD, CAD, Cancer, CVA, ARF, Chemo, Hep., AIDS, mental health diagnosis, sleep apnea, morbid obesity)? @ -None Was patient admitted / discharged? Hospital course, mention meds given and route, prescriptions, significant lab abnormalities, going to OR and other pert inent info. @ -Patient was discharged. Patient was seen and examined for rash x 3 weeks. No sign of bacterial infection or angioedema. Benadryl and Solu-Medrol given IM. Discussed risks of medication as well as side effects. Encouraged to follow-up with multiple wire sawyer for upcoming appointment. Prescribed prednisone to start tomorrow. Patient discharged in stable condition. Case discussed with Franck Ayon. Undiagnosed new problem with uncertain prognosis? @ -No Drug Therapy requiring intensive monitoring for toxicity (Heparin, Nitro, Insulin, Cardizem)? @ -No Were any procedures done? @ -No Diagnosis/symptom? @ -Allergic reaction Acute, or Chronic, or Acute on Chronic? @ -Acute Uncomplicated (without systemic symptoms) or Complicated (systemic symptoms)? @ -Uncomplicated Side effects of treatment? @ -No Exacerbation, Progression, or Severe Exacerbation? @ -No Poses a threat to life or bodily function? How? (Chest pain, [place], [place], pneumonia, PE, COPD, DKA, ARF, appy, cholecystitis, CVA, Diverticulitis, Homicidal, Suicidal, threat to staff... and all critical care pts) @ -No Disposition Clinical Impression: Rash and other nonspecific skin eruption Disposition: HOME SELF-CARE Condition: Stable Additional Instructions: Please return to the Emergency Department if symptoms worsen or any other concerns. Prescriptions: predniSONE [Deltasone] 40 mg PO DAILY #10 tab Is patient prescribed a controlled substance at d/c from ED?: No Referrals: Sandrita Hobson MD [Primary Care Provider] - 1-2 days Time of Disposition: 08:52
[2023-06-07] MEDS: diphenhydrAMINE 50 MG/ML 1 ML VIAL IM STA (08:29)
[2023-06-07] MEDS: methylPREDNISolone SOD SUCCI 125 MG/2 ML VIAL IM ONE (08:29)
[2023-06-07 09:26] VITALS: BP 122/68; PULSE 74; TEMP 98.1
== END 2023-06-07 08:56 | disposition home or self-care (01) ==
LOC: EC 07:24
DX: T78.40XA Allergy, unspecified, initial encounter (principal)
CPT/HCPCS: 99282; 96372 ×2; J1200; J2919

== ENCOUNTER 2023-06-14 03:54 | Emergency (ER) | payer MEDICARE ==
[2023-06-14] MEDS: EPINEPHrine - Anaphylaxis Kit (1 mg/mL) IM STA (04:10)
[2023-06-14] MEDS: DEXAMETHASONE SOD PHOSPHATE 10 MG/ML 1 ML VIAL IVP STA (04:13)
--- NOTE | 2023-06-14 04:13 | ED ---
Allergic Reaction HPI - General Chief complaint: Allergic Reaction Stated complaint: Allergic Reaction, Difficulty Breathing Time Seen by Provider: 06/14/23 04:03 Source: patient, RN notes reviewed, old records reviewed Mode of arrival: ambulatory Limitations: no limitations - History of Present Illness Initial Comments: This is a 78-year-old female coming in for allergic reaction this is a revisit for allergic reaction that patient has had in the past as allergic reaction is persistent here in the ER with feels like her throat is closing. Lips are swelling. No tongue swelling MD Complaint: allergic reaction, facial swelling, other (Lip swelling no tongue swelling no stridor) -: hour(s) Exposure: unknown Severity: severe Treatment Prior to Arrival: none Previous Allergy History: prior ED visit(s) (Patient recently did stop taking lisinopril) - Related Data Home Medications Medication Instructions Recorded Confirmed Aspirin [Adult Low Dose Aspirin EC] 81 mg PO DAILY 11/07/16 09/29/18 Simvastatin [Zocor] 20 mg PO DAILY 11/07/16 10/07/18 metFORMIN HCL [Glucophage] 500 mg PO HS 11/07/16 10/07/18 ALPRAZolam [Xanax] 0.25 mg PO Q8HR PRN 04/22/17 09/29/18 Citalopram Hydrobromide 20 mg PO DAILY 04/22/17 10/07/18 [Citalopram HBr] Previous Rx's Medication Instructions Recorded Aspirin 325 mg PO BID #60 tab 10/08/18 Docusate [Colace] 100 mg PO BID #60 capsule 10/08/18 HYDROcodone/APAP 7.5-325MG [Rollins 1 - 2 each PO Q6HR PRN #56 tab 10/08/18 7.5-325] Losartan Potassium [Cozaar] 50 mg PO DAILY #0 10/08/18 Famotidine [Pepcid] 20 mg PO DAILY 7 Days #7 tablet 12/21/22 diphenhydrAMINE [Benadryl] 25 mg PO TID PRN 7 Days #21 capsule 12/21/22 predniSONE 50 mg PO DAILY 5 Days #5 tab 12/21/22 hydrOXYzine HCL [Atarax] 25 mg PO TID PRN #15 tab 05/28/23 predniSONE [Deltasone] 40 mg PO DAILY #10 tab 06/07/23 Famotidine [Pepcid] 40 mg PO BID #28 tablet 06/14/23 hydrOXYzine HCL [Atarax] 25 mg PO TID PRN #15 tab 06/14/23 predniSONE 50 mg PO DAILY #5 tab 06/14/23 Allergies Allergy/AdvReac Type Severity Reaction Status Date / Time No Known Allergies Allergy Verified 06/14/23 03:57 Review of Systems ROS Statement: Those systems with pertinent positive or pertinent negative responses have been documented in the HPI. ROS Other: All systems not noted in ROS Statement are negative. Past Medical History Past Medical History: Diabetes Mellitus, GERD/Reflux, Hyperlipidemia, Hypertension, Osteoarthritis (OA) Additional Past Medical History / Comment(s): arthritis rt knee, History of Any Multi-Drug Resistant Organisms: None Reported Past Surgical History: Breast Surgery, Cholecystectomy, Heart Catheterization, Hysterectomy, Tubal Ligation Additional Past Surgical History / Comment(s): rt breast biopsy, rt carotid endartectomy Past Anesthesia/Blood Transfusion Reactions: No Reported Reaction Additional Past Anesthesia/Blood Transfusion Reaction / Comment(s): claustrophobic Past Psychological History: Anxiety, Depression Smoking Status: Never smoker Past Alcohol Use History: None Reported Past Drug Use History: None Reported - Past Family History Mother Family Medical History: No Reported History Father Family Medical History: Cancer General Exam Limitations: no limitations General appearance: alert, in no apparent distress Head exam: Present: atraumatic, normocephalic, normal inspection Eye exam: Present: normal appearance, PERRL, EOMI. Absent: scleral icterus, conjunctival injection, periorbital swelling ENT exam: Present: normal exam, mucous membranes moist Neck exam: Present: normal inspection. Absent: tenderness, meningismus, lymphadenopathy Respiratory exam: Present: normal lung sounds bilaterally. Absent: respiratory distress, wheezes, rales, rhonchi, stridor Cardiovascular Exam: Present: regular rate, normal rhythm, normal heart sounds. Absent: systolic murmur, diastolic murmur, rubs, gallop, clicks GI/Abdominal exam: Present: soft, normal bowel sounds. Absent: distended, tenderness, guarding, rebound, rigid Extremities exam: Present: normal inspection, full ROM, normal capillary refill. Absent: tenderness, pedal edema, joint swelling, calf tenderness Back exam: Present: normal inspection Neurological exam: Present: alert, oriented X3, CN II-XII intact Psychiatric exam: Present: normal affect, normal mood Skin exam: Present: warm, dry, intact, normal color. Absent: rash Course Vital Signs 06/14/23 06/14/23 06/14/23 03:56 04:07 04:24 Temperature 98 F Pulse Rate 98 66 Respiratory 18 20 20 Rate Blood Pressure 188/94 147/72 O2 Sat by Pulse 99 95 Oximetry 06/14/23 06/14/23 04:30 05:28 Temperature Pulse Rate 56 L 84 Respiratory 18 18 Rate Blood Pressure 130/56 140/57 O2 Sat by Pulse 93 L 97 Oximetry - Reevaluation(s) Reevaluation #1: 06/14/23 04:57 Records reviewed Reevaluation #2: 06/14/23 04:57 Patient symptoms improved Reevaluation #3: 06/14/23 04:57 Patient informed of results and questions answered Reevaluation #4: Was pt. sent in by a medical professional or institution (, PA, SCENE PAINTER, urgent care, hospital, or shelter...) When possible be specific @ -no Did you speak to anyone other than the patient for history (EMS, parent, family, police, friend...)? What history was obtained from this source @ -no Did you review nursing and triage notes (agree or disagree)? Why? @ -agree Are old charts reviewed (outside hosp., previous admission, EMS record, old EKG, old radiological studies, urgent care reports/EKG's, shelter records)? Report findings @ -yes Differential Diagnosis (chest pain, altered mental status, abdominal pain women, abdominal pain men, vaginal bleeding, weakness, fever, dyspnea, syncope, headache, dizziness, GI bleed, back pain, seizure, CVA, palpatations, mental health, musculoskeletal)? @ -prior EKG interpreted by me (3pts min.). @ -no X-rays interpreted by me (1pt min.). @ -no CT interpreted by me (1pt min.). @ -no U/S interpreted by me (1pt. min.). @ -no What testing was considered but not performed or refused? (CT, X-rays, U/S, labs)? Why? @ -none What meds were considered but not given or refused? Why? @ -none Did you discuss the management of the patient with other professionals (professionals i.e. , PA, SCENE PAINTER, lab, RT, psych nurse, social services analyst, second baker, teacher, air defense control officer, residential case manager)? Give summary @ -no Was smoking cessation discussed for >3mins.? @ -no Was critical care preformed (if so, how long)? @ -no Were there social determinants of health that impacted care today? How? (Homelessness, low income, unemployed, alcoholism, drug addiction, transportation, low edu. Level, literacy, decrease access to med. care, [facility], rehab)? @ -none Was there de-escalation of care discussed even if they declined (Discuss DNR or withdrawal of care, Hospice)? DNR status @ -no What co-morbidities impacted this encounter? (DM, HTN, Smoking, COPD, CAD, Cancer, CVA, ARF, Chemo, Hep., AIDS, mental health diagnosis, sleep apnea, morbid obesity)? @ -none Was patient admitted / discharged? Hospital course, mention meds given and route, prescriptions, significant lab abnormalities, going to OR and other pertinent info. @ - 78 female with angioedema symptoms here in the ER lip swelling allergic reaction, patient will be a discharged home as symptoms are dramatically improved Discharge Undiagnosed new problem with uncertain prognosis? @ -no Drug Therapy requiring intensive monitoring for toxicity (Heparin, Nitro, Insulin, Cardizem)? @ -no Were any procedures done? @ -no Diagnosis/symptom? @ -Allergic reaction angioedema Acute, or Chronic, or Acute on Chronic? @ -Acute Uncomplicated (without systemic symptoms) or Complicated (systemic symptoms)? @ -Complicated Side effects of treatment? @ -no Exacerbation, Progression, or Severe Exacerbation? @ -exacerbation Poses a threat to life or bodily function? How? (Chest pain, [place], [place], pneumonia, PE, COPD, DKA, ARF, appy, cholecystitis, CVA, Diverticulitis, Homicidal, Suicidal, threat to staff... and all critical care pts) @ -yes with extremes of age Medical Decision Making - Medical Decision Making 78 female with angioedema symptoms here in the ER lip swelling allergic reaction, patient will be a discharged home as symptoms are dramatically improved Disposition Clinical Impression: Angioedema, Allergic reaction Disposition: HOME SELF-CARE Condition: Fair Instructions (If sedation given, give patient instructions): Anaphylaxis (ED), Angioedema (ED) Prescriptions: hydrOXYzine HCL [Atarax] 25 mg PO TID PRN #15 tab PRN Reason: Itching Famotidine [Pepcid] 40 mg PO BID #28 tablet predniSONE 50 mg PO DAILY #5 tab Is patient prescribed a controlled substance at d/c from ED?: No Referrals: Sandrita Hobson MD [Primary Care Provider] - 1-2 days Time of Disposition: 05:00
[2023-06-14 04:15] VITALS: RESP 18; TEMP 98
[2023-06-14] MEDS: FAMOTIDINE 20 MG/2 ML VIAL IV STA (04:15)
[2023-06-14] MEDS: methylPREDNISolone SOD SUCCI 125 MG/2 ML VIAL IV STA (04:17)
[2023-06-14] MEDS: dexAMETHasone 2 MG TAB PO STA (05:25)
[2023-06-14 05:41] VITALS: BP 140/57; PULSE 84
== END 2023-06-14 05:29 | disposition home or self-care (01) ==
LOC: EC 03:54
DX: T78.3XXA Angioneurotic edema, initial encounter (principal)
CPT/HCPCS: 96374; 96375 ×2; 96372; 99283; J1100; J3490; J8540; J2919

== ENCOUNTER 2023-07-18 16:23 | Emergency (ER) | payer MEDICARE ==
[2023-07-18 16:46] VITALS: TEMP 98.7
--- NOTE | 2023-07-18 17:02 | ED ---
Neuro HPI - General Chief Complaint: Neuro Symptoms/Deficit Stated Complaint: AMS Time Seen by Provider: 07/18/23 16:49 Source: EMS, RN notes reviewed, old records reviewed Mode of arrival: EMS Limitations: no limitations - History of Present Illness Is the patient presenting with stroke symptoms?: Yes -: hour(s) (2) Initial Comments: This is a 78-year-old female who presented with slurred speech for likely tongue was initially swelling although she states that is now improving patient still with slurred speech here in the ER with history of hypertension diabetes high cholesterol but no history of prior CVA. Patient has no other symptoms no arm or leg weakness and symptoms are 2 hours prior to arrival. Patient states she gets history of allergic reaction and this is not uncommon for her Location: speech Place: home Severity: mild Quality: weak, tingling Improves With: time Worsens With: none Context: sudden onset Associated Symptoms: denies other symptoms - Related Data Home Medications: Home Medications Medication Instructions Recorded Confirmed Aspirin [Adult Low Dose Aspirin EC] 81 mg PO DAILY 11/07/16 09/29/18 Simvastatin [Zocor] 20 mg PO DAILY 11/07/16 10/07/18 metFORMIN HCL [Glucophage] 500 mg PO HS 11/07/16 10/07/18 ALPRAZolam [Xanax] 0.25 mg PO Q8HR PRN 04/22/17 09/29/18 Citalopram Hydrobromide 20 mg PO DAILY 04/22/17 10/07/18 [Citalopram HBr] Previous Rx's Medication Instructions Recorded Aspirin 325 mg PO BID #60 tab 10/08/18 Docusate [Colace] 100 mg PO BID #60 capsule 10/08/18 HYDROcodone/APAP 7.5-325MG [[place] 1 - 2 each PO Q6HR PRN #56 tab 10/08/18 7.5-325] Losartan Potassium [Cozaar] 50 mg PO DAILY #0 10/08/18 Famotidine [Pepcid] 20 mg PO DAILY 7 Days #7 tablet 12/21/22 diphenhydrAMINE [Benadryl] 25 mg PO TID PRN 7 Days #21 capsule 12/21/22 predniSONE 50 mg PO DAILY 5 Days #5 tab 12/21/22 hydrOXYzine HCL [Atarax] 25 mg PO TID PRN #15 tab 04/03/24 predniSONE [Deltasone] 40 mg PO DAILY #10 tab 06/07/23 Famotidine [Pepcid] 40 mg PO BID #28 tablet 06/14/23 hydrOXYzine HCL [Atarax] 25 mg PO TID PRN #15 tab 06/14/23 predniSONE 50 mg PO DAILY #5 tab 06/14/23 Allergies/Adverse Reactions: Allergies Allergy/AdvReac Type Severity Reaction Status Date / Time No Known Allergies Allergy Verified 06/14/23 03:57 Review of Systems ROS Statement: Those systems with pertinent positive or pertinent negative responses have been documented in the HPI. ROS Other: All systems not noted in ROS Statement are negative. General Exam Limitations: no limitations General appearance: alert, in no apparent distress Head exam: Present: atraumatic, normocephalic, normal inspection Eye exam: Present: normal appearance, PERRL, EOMI. Absent: scleral icterus, conjunctival injection, periorbital swelling ENT exam: Present: normal exam, mucous membranes moist Neck exam: Present: normal inspection. Absent: tenderness, meningismus, lymphadenopathy Respiratory exam: Present: normal lung sounds bilaterally. Absent: respiratory distress, wheezes, rales, rhonchi, stridor Cardiovascular Exam: Present: regular rate, normal rhythm, normal heart sounds. Absent: systolic murmur, diastolic murmur, rubs, gallop, clicks GI/Abdominal exam: Present: soft, normal bowel sounds. Absent: distended, tenderness, guarding, rebound, rigid Extremities exam: Present: normal inspection, full ROM, normal capillary refill. Absent: tenderness, pedal edema, joint swelling, calf tenderness Back exam: Present: normal inspection Neurological exam: Present: alert, oriented X3, CN II-XII intact Psychiatric exam: Present: normal affect, normal mood Skin exam: Present: warm, dry, intact, normal color. Absent: rash Stroke MDM - Lab Data Result diagrams: 07/18/23 17:00 07/18/23 17:00 Lab Results 07/18/23 07/18/23 07/18/23 Range/Units 17:00 17:00 17:00 WBC 10.4 (3.8-10.6) k/uL RBC 4.53 (3.80-5.40) m/uL Hgb 13.1 (11.4-16.0) gm/dL Hct 41.4 (34.0-46.0) % MCV 91.4 (80.0-100.0) fL MCH 28.9 (25.0-35.0) pg MCHC 31.6 (31.0-37.0) g/dL RDW 13.9 (11.5-15.5) % Plt Count 291 (150-450) k/uL MPV 7.3 Neutrophils % 80 % Lymphocytes % 14 % Monocytes % 3 % Eosinophils % 2 % Basophils % 1 % Neutrophils # 8.4 H (1.3-7.7) k/uL Lymphocytes # 1.4 (1.0-4.8) k/uL Monocytes # 0.4 (0-1.0) k/uL Eosinophils # 0.2 (0-0.7) k/uL Basophils # 0.1 (0-0.2) k/uL PT 11.1 (10.0-12.5) sec INR 1.0 (<1.2) APTT 21.1 L (22.0-30.0) sec Sodium 136 L (137-145) mmol/L Potassium 3.4 L (3.5-5.1) mmol/L Chloride 103 (98-107) mmol/L Carbon Dioxide 25 (22-30) mmol/L Anion Gap 8 mmol/L BUN 13 (7-17) mg/dL Creatinine 0.70 (0.52-1.04) mg/dL Est GFR (CKD-EPI)AfAm >90 (>60 ml/min/1.73 sqM) Est GFR (CKD-EPI)NonAf 84 (>60 ml/min/1.73 sqM) Glucose 137 H (74-99) mg/dL POC Glucose (mg/dL) (70-110) mg/dL POC Glu Party Coordinator ID Calcium 9.4 (8.4-10.2) mg/dL Total Bilirubin 0.5 (0.2-1.3) mg/dL AST 29 (14-36) U/L ALT 27 (4-34) U/L Alkaline Phosphatase 97 (38-126) U/L Creatine Kinase 82 (30-135) U/L Troponin I (0.000-0.034) ng/mL Total Protein 6.8 (6.3-8.2) g/dL Albumin 4.1 (3.5-5.0) g/dL Urine Color Urine Appearance (Clear) Urine pH (5.0-8.0) Ur Specific [place] (1.001-1.035) Urine Protein (Negative) Urine Glucose (UA) (Negative) Urine Ketones (Negative) Urine Blood (Negative) Urine Nitrite (Negative) Urine Bilirubin (Negative) Urine Urobilinogen (<2.0) mg/dL Ur Leukocyte Esterase (Negative) 07/18/23 07/18/23 07/18/23 Range/Units 17:00 17:36 18:17 WBC (3.8-10.6) k/uL RBC (3.80-5.40) m/uL Hgb (11.4-16.0) gm/dL Hct (34.0-46.0) % MCV (80.0-100.0) fL MCH (25.0-35.0) pg MCHC (31.0-37.0) g/dL RDW (11.5-15.5) % Plt Count (150-450) k/uL MPV Neutrophils % % Lymphocytes % % Monocytes % % Eosinophils % % Basophils % % Neutrophils # (1.3-7.7) k/uL Lymphocytes # (1.0-4.8) k/uL Monocytes # (0-1.0) k/uL Eosinophils # (0-0.7) k/uL Basophils # (0-0.2) k/uL PT (10.0-12.5) sec INR (<1.2) APTT (22.0-30.0) sec Sodium (137-145) mmol/L Potassium (3.5-5.1) mmol/L Chloride (98-107) mmol/L Carbon Dioxide (22-30) mmol/L Anion Gap mmol/L BUN (7-17) mg/dL Creatinine (0.52-1.04) mg/dL Est GFR (CKD-EPI)AfAm (>60 ml/min/1.73 sqM) Est GFR (CKD-EPI)NonAf (>60 ml/min/1.73 sqM) Glucose (74-99) mg/dL POC Glucose (mg/dL) 141 H (70-110) mg/dL POC Glu Party Coordinator ID Vagts, Suzin Calcium (8.4-10.2) mg/dL Total Bilirubin (0.2-1.3) mg/dL AST (14-36) U/L ALT (4-34) U/L Alkaline Phosphatase (38-126) U/L Creatine Kinase (30-135) U/L Troponin I <0.012 (0.000-0.034) ng/mL Total Protein (6.3-8.2) g/dL Albumin (3.5-5.0) g/dL Urine Color Colorless Urine Appearance Clear (Clear) Urine pH 6.5 (5.0-8.0) Ur Specific [place] 1.012 (1.001-1.035) Urine Protein Negative (Negative) Urine Glucose (UA) Negative (Negative) Urine Ketones Negative (Negative) Urine Blood Negative (Negative) Urine Nitrite Negative (Negative) Urine Bilirubin Negative (Negative) Urine Urobilinogen <2.0 (<2.0) mg/dL Ur Leukocyte Esterase Negative (Negative) - NIH Stroke Scale 1a. Level of Consciousness: (0) alert 1b. LOC Questions: (0) answers correctly 1c. LOC Commands: (0) performs tasks correctly 2. Best Gaze: (0) normal 3. Visual: (0) no visual loss 4. Facial Palsy: (0) normal symmetrical movement 5a. Motor Arm Left: (0) no drift 5b. Motor Arm Right: (0) no drift 6a. Motor Leg Left: (0) no drift 6b. Motor Leg Right: (0) no drift 7. Limb Ataxia: (0) absent 8. Sensory: (0) normal 9. Best Language: (1) mild/moderate aphasia 10. Dysarthria: (1) mild/moderate dysarthria 11. Extinction/Inattention: (0) no abnormality - Thrombolytic Inclusion/Exclusion Thrombolytic Inclusion Criteria: Symptom Onset < 4.5 h, NIH Stroke Scale Deficit (2) - Core Measures Measure Exclusions: not indicated (Patient was a non-tPA or interventional candidate secondary to low NIH, NIH 2) - Medical Decision Making 78 female to ER with swollen tongue concern for CVA TIA, symptoms resolved here in the ER feels well will treat like allergic reaction and patient can be discharged home - Radiology Data Radiology results: report reviewed (CT brain and CTA head neck negative for acute disease), image reviewed - EKG Data -: EKG Interpreted by Me (EKG is sinus 62 UT 160 QRS 114 QTc 450) Past Medical History Past Medical History: Diabetes Mellitus, GERD/Reflux, Hyperlipidemia, Hyperte nsion, Osteoarthritis (OA) Additional Past Medical History / Comment(s): arthritis rt knee, History of Any Multi-Drug Resistant Organisms: None Reported Past Surgical History: Breast Surgery, Cholecystectomy, Heart Catheterization, Hysterectomy, Tubal Ligation Additional Past Surgical History / Comment(s): rt breast biopsy, rt carotid endartectomy Past Anesthesia/Blood Transfusion Reactions: No Reported Reaction Additional Past Anesthesia/Blood Transfusion Reaction / Comment(s): claustrophobic Past Psychological History: Anxiety, Depression Smoking Status: Never smoker Past Alcohol Use History: None Reported Past Drug Use History: None Reported - Past Family History Mother Family Medical History: No Reported History Father Family Medical History: Cancer Course Vital Signs 07/18/23 07/18/23 07/18/23 16:37 16:59 18:00 Temperature 98.7 F Pulse Rate 65 63 68 Respiratory 18 18 16 Rate Blood Pressure 188/68 165/61 165/91 O2 Sat by Pulse 97 96 93 L Oximetry 07/18/23 07/18/23 20:03 20:14 Temperature Pulse Rate 68 67 Respiratory 17 17 Rate Blood Pressure 141/71 141/71 O2 Sat by Pulse 92 L 92 L Oximetry - Reevaluation(s) Reevaluation #1: 07/18/23 17:27 Medical records reviewed Reevaluation #2: 07/18/23 17:27 Patient symptoms unchanged Reevaluation #3: 07/18/23 17:27 Patient informed of results questions answered Reevaluation #4: Was pt. sent in by a medical professional or institution (, PA, GENERAL MAINTENANCE MECHANIC, urgent care, hospital, or snf...) When possible be specific @ -no Did you speak to anyone other than the patient for history (EMS, parent, family, police, friend...)? What history was obtained from this source @ -no Did you review nursing and triage notes (agree or disagree)? Why? @ -agree Are old charts reviewed (outside hosp., previous admission, EMS record, old EKG, old radiological studies, urgent care reports/EKG's, snf records)? Report findings @ -yes Differential Diagnosis (chest pain, altered mental status, abdominal pain women, abdominal pain men, vaginal bleeding, weakness, fever, dyspnea, syncope, headache, dizziness, GI bleed, back pain, seizure, CVA, palpatations, mental health, musculoskeletal)? @ -prior EKG interpreted by me (3pts min.). @ -yes X-rays interpreted by me (1pt min.). @ -no CT interpreted by me (1pt min.). @ -yes negative for acute disease U/S interpreted by me (1pt. min.). @ -no What testing was considered but not performed or refused? (CT, X-rays, U/S, l abs)? Why? @ -none What meds were considered but not given or refused? Why? @ -none Did you discuss the management of the patient with other professionals (professionals i.e. , PA, GENERAL MAINTENANCE MECHANIC, lab, RT, psych nurse, social welfare research worker, tabulating machine mechanic, teacher, protective services officer, shelter case manager)? Give summary @ -no Was smoking cessation discussed for >3mins.? @ -no Was critical care preformed (if so, how long)? @ -no Were there social determinants of health that impacted care today? How? (Homelessness, low income, unemployed, alcoholism, drug addiction, transportation, low edu. Level, literacy, decrease access to med. care, nursing home, rehab)? @ -none Was there de-escalation of care discussed even if they declined (Discuss DNR or withdrawal of care, Hospice)? DNR status @ -no What co-morbidities impacted this encounter? (DM, HTN, Smoking, COPD, CAD, Cancer, CVA, ARF, Chemo, Hep., AIDS, mental health diagnosis, sleep apnea, morbid obesity)? @ -none Was patient admitted / discharged? Hospital course, mention meds given and route, prescriptions, significant lab abnormalities, going to OR and other pertinent info. @ - 78 female to ER with swollen tongue concern for CVA TIA, symptoms resolved here in the ER feels well will treat like allergic reaction and patient can be discharged home Discharge Undiagnosed new problem with uncertain prognosis? @ -no Drug Therapy requiring intensive monitoring for toxicity (Heparin, Nitro, Insulin, Cardizem)? @ -no Were any procedures done? @ -no Diagnosis/symptom? @Allergic reaction l reaction, concern for TIA Acute, or Chronic, or Acute on Chronic? @ -Acute Uncomplicated (without systemic symptoms) or Complicated (systemic symptoms)? @ -Complicated Side effects of treatment? @ -no Exacerbation, Progression, or Severe Exacerbation? @ -exacerbation Poses a threat to life or bodily function? How? (Chest pain, [place], [place], pneumonia, PE, COPD, DKA, ARF, appy, cholecystitis, CVA, Diverticulitis, Homicidal, Suicidal, threat to staff... and all critical care pts) @ -yes with significant allergic reaction affecting the tongue Reevaluation #5: Differential CVA Ischemic stroke, hemorrhagic stroke, brain tumor, atypical migraine, Wernicke's encephalopathy, seizure, multiple sclerosis, meningitis, encephalitis, hypoglycemia, Guillain-Lundy, electrolytes disturbance, myasthenia gravis.... This is not meant to be an all-inclusive list Disposition Clinical Impression: Allergic reaction, Transient cerebral ischemia Disposition: HOME SELF-CARE Condition: Fair Instructions (If sedation given, give patient instructions): Anaphylaxis (ED) Is patient prescribed a controlled substance at d/c from ED?: No Referrals: Sandrita Hobson MD [Primary Care Provider] - 1-2 days Time of Disposition: 18:40
[2023-07-18 17:18] LABS: Basophils # (A) 0.1 k/uL (0-0.2); Basophils % (A) 1 %; Eosinophils # (A) 0.2 k/uL (0-0.7); Eosinophils % (A) 2 %; HCT 41.4 % (34.0-46.0); HGB 13.1 gm/dL (11.4-16.0); Lymphocytes # (A) 1.4 k/uL (1.0-4.8); Lymphocytes % (A) 14 %; MCH 28.9 pg (25.0-35.0); MCHC 31.6 g/dL (31.0-37.0); MCV 91.4 fL (80.0-100.0); Mean Platelet Volume 7.3; Monocytes # (A) 0.4 k/uL (0-1.0); Monocytes % (A) 3 %; Neutrophils # (A) 8.4 k/uL (1.3-7.7); Neutrophils % (A) 80 %; Platelet Count 291 k/uL (150-450); RBC 4.53 m/uL (3.80-5.40); RDW 13.9 % (11.5-15.5); WBC 10.4 k/uL (3.8-10.6)
[2023-07-18 17:23] LABS: ALT 27 U/L (4-34); AST 29 U/L (14-36); African American GFR (CKD) >90 (>60 ml/min/1.73 sqM); Albumin 4.1 g/dL (3.5-5.0); Alkaline Phosphatase 97 U/L (38-126); Anion Gap 8 mmol/L; Blood Urea Nitrogen 13 mg/dL (7-17); Calcium 9.4 mg/dL (8.4-10.2); Carbon Dioxide 25 mmol/L (22-30); Chloride 103 mmol/L (98-107); Creatine Kinase 82 U/L (30-135); Glucose 137 mg/dL (74-99); Non-African American GFR(CKD) 84 (>60 ml/min/1.73 sqM); Potassium 3.4 mmol/L (3.5-5.1); Sodium 136 mmol/L (137-145); Total Bilirubin 0.5 mg/dL (0.2-1.3); Total Protein 6.8 g/dL (6.3-8.2)
--- NOTE | 2023-07-18 17:26 | CT ---
EXAMINATION TYPE: CODE STROKE: CT brain wo contr DATE OF EXAM: 07/18/2023 COMPARISON: None INDICATION: SLURRED SPEECH CODE STROKE DLP: 1246.6 mGycm, Automated exposure control for dose reduction was used. CONTRAST: None CT of the brain is performed utilizing 3 mm thick sections through the posterior fossa and 3 mm thick sections through the remaining calvarium. Study is performed within 24 hours of arrival to the hosp ital. No abnormal hyperdensity is present to suggest an acute intracranial hemorrhage. No mass lesion is evident. No acute infarcts are evident. Ventricles and sulci are appropriate for the patient age. Paranasal sinuses and mastoid air cells within the [id number] are clear. IMPRESSION: 1. No acute intracranial process radiographically apparent. Follow-up MRI can be clinically indicat ed.
[2023-07-18 17:37] LABS: Prothrombin Time 11.1 sec (10.0-12.5)
[2023-07-18 17:40] LABS: Partial Thromboplastin Time 21.1 sec (22.0-30.0)
[2023-07-18 17:42] LABS: Glucose,Whole Blood 141 mg/dL (70-110)
[2023-07-18 18:37] LABS: Appearance,Urine Clear (Clear); Bilirubin,Urine Negative (Negative); Blood,Urine Negative (Negative); Color,Urine Colorless; Glucose,Urine (UA) Negative (Negative); Ketones,Urine Negative (Negative); Leukocyte Esterase,Urine Negative (Negative); Nitrite,Urine Negative (Negative); PH, Urine 6.5 (5.0-8.0); Protein,Urine Negative (Negative); Specific Gravity,Urine 1.012 (1.001-1.035); Urobilinogen,Urine <2.0 mg/dL (<2.0)
--- NOTE | 2023-07-18 18:38 | CT ---
EXAMINATION TYPE: CT angio head neck DATE OF EXAM: 07/18/2023 HISTORY: COMPARISON: None CT DLP: mGycm. Automated Exposure Control for Dose Reduction was Utilized. TECHNIQUE: CTA scan of the neck is performed , patient injected with mL of , axial images are obtain ed, coronal and sagittal reformatted images are reviewed. Three-D reconstructed images are created on an independent workstation and reviewed. Source images are reviewed. FINDINGS: Carotid/Vascular Structures: There is a 3 vessel arch. Common carotid arteries bifurcate into internal and external carotid arteries without significant mike w limiting stenosis. There is mild stenosis of less than 50% of the left internal carotid artery. Vertebral arteries are codominant. Internal carotid arteries and vertebral arteries are patent to the skull base. Cervical of [place]: Vertebral basilar system appears normal. Posterior cerebral vasculature is unrema rkable. Internal carotid arteries bifurcate normally into A1 and M1 segments. A2 segments are normal. The anterior communicating artery is patent. The right posterior communicating artery is absent. The left posterior communicating artery is absent. IMPRESSION: 1. No flow-limiting stenosis bilateral carotid bifurcations. 2. Normal [place] of [place] NASCET criteria was used in interpretation of this exam?
--- NOTE | 2023-07-18 18:42 | XR ---
EXAMINATION TYPE: XR chest 2V DATE OF EXAM: 07/18/2023 COMPARISON: 09/10/2014 INDICATION: Altered mental status TECHNIQUE: Frontal and lateral views of the chest are obtained. FINDINGS: The heart size is normal. The pulmonary vasculature is normal. The lungs are clear. IMPRESSION: 1. No acute pulmonary process.
[2023-07-18] MEDS: POTASSIUM BICARBONATE/CIT AC 20 MEQ TABLET.EFF PO ONE (20:01)
[2023-07-18] MEDS: DEXAMETHASONE SOD PHOSPHATE 10 MG/ML 1 ML VIAL IVP STA (20:01)
[2023-07-18] MEDS: FAMOTIDINE 20 MG/2 ML VIAL IV STA (20:01)
[2023-07-18] MEDS: diphenhydrAMINE 50 MG/ML 1 ML VIAL IVP STA (20:01)
[2023-07-18] MEDS: SODIUM CHLORIDE 0.9% 1,000 ML IV STA (20:02)
[2023-07-18 20:43] VITALS: BP 141/71; PULSE 67; RESP 17
== END 2023-07-18 20:16 | disposition home or self-care (01) ==
LOC: EC 16:23
DX: T78.40XA Allergy, unspecified, initial encounter (principal); G45.9 Transient cerebral ischemic attack, unspecified
CPT/HCPCS: 36415; 93005; 80053; 82550; 84484; 85025; 85610; 85730; 81003; 71046; 70496; 70450; 70498; 99285; Q9967

== ENCOUNTER 2023-07-20 01:27 | Emergency (ER) | payer MEDICARE ==
--- NOTE | 2023-07-20 01:49 | ED ---
Allergic Reaction HPI - General Chief complaint: Allergic Reaction Stated complaint: Allergic reaction, OMISES Time Seen by Provider: 07/20/23 01:45 Source: patient Mode of arrival: ambulatory - History of Present Illness Initial Comments: Patient is a pleasant 78-year-old female who presents the ER today for evaluation of angioedema of the lips. Patient reports that this has been happening intermittently since November of last year, in November they thought it was due to to strawberries however she has not had further exposure and has had intermittent rash and this is her fifth episode of angioedema. Patient is scheduled to see an water resource project manager this week. - Related Data Home Medications Medication Instructions Recorded Confirmed Aspirin [Adult Low Dose Aspirin EC] 81 mg PO DAILY 11/07/16 09/29/18 Simvastatin [Zocor] 20 mg PO DAILY 11/07/16 10/07/18 metFORMIN HCL [Glucophage] 500 mg PO HS 11/07/16 10/07/18 ALPRAZolam [Xanax] 0.25 mg PO Q8HR PRN 04/22/17 09/29/18 Citalopram Hydrobromide 20 mg PO DAILY 04/22/17 10/07/18 [Citalopram HBr] Previous Rx's Medication Instructions Recorded Aspirin 325 mg PO BID #60 tab 10/08/18 Docusate [Colace] 100 mg PO BID #60 capsule 10/08/18 HYDROcodone/APAP 7.5-325MG [[place] 1 - 2 each PO Q6HR PRN #56 tab 10/08/18 7.5-325] Losartan Potassium [Cozaar] 50 mg PO DAILY #0 10/08/18 Famotidine [Pepcid] 20 mg PO DAILY 7 Days #7 tablet 12/21/22 diphenhydrAMINE [Benadryl] 25 mg PO TID PRN 7 Days #21 capsule 12/21/22 predniSONE 50 mg PO DAILY 5 Days #5 tab 12/21/22 hydrOXYzine HCL [Atarax] 25 mg PO TID PRN #15 tab 05/28/23 predniSONE [Deltasone] 40 mg PO DAILY #10 tab 06/07/23 Famotidine [Pepcid] 40 mg PO BID #28 tablet 06/14/23 hydrOXYzine HCL [Atarax] 25 mg PO TID PRN #15 tab 06/14/23 predniSONE 50 mg PO DAILY #5 tab 06/14/23 Allergies Allergy/AdvReac Type Severity Reaction Status Date / Time No Known Allergies Allergy Verified 07/20/23 01:39 Review of Systems ROS Statement: Those systems with pertinent positive or pertinent negative responses have been documented in the HPI. ROS Other: All systems not noted in ROS Statement are negative. Past Medical History Past Medical History: Diabetes Mellitus, GERD/Reflux, Hyperlipidemia, Hypertension, Osteoarthritis (OA) Additional Past Medical History / Comment(s): arthritis rt knee, History of Any Multi-Drug Resistant Organisms: None Reported Past Surgical History: Breast Surgery, Cholecystectomy, Heart Catheterization, Hysterectomy, Tubal Ligation Additional Past Surgical History / Comment(s): rt breast biopsy, rt carotid endartectomy Past Anesthesia/Blood Transfusion Reactions: No Reported Reaction Additional Past Anesthesia/Blood Transfusion Reaction / Comment(s): claustrophobic Past Psychological History: Anxiety, Depression Smoking Status: Never smoker Past Alcohol Use History: None Reported Past Drug Use History: None Reported - Past Family History Mother Family Medical History: No Reported History Father Family Medical History: Cancer General Exam - General Exam Comments Initial Comments: Physical Exam GENERAL: Patient is well-developed and well-nourished. Patient is nontoxic and well-hydrated and is in no distress. HENT: Normocephalic, Atraumatic Angioedema of the lips, no angioedema of the tongue or uvula EYES: PERRL, EOMI PULMONARY: Unlabored respirations. No Wheezing CARDIOVASCULAR: RRR Warm and well perfused extremities ABDOMEN: Non-distended SKIN: No rashes or bruising : Deferred NEUROLOGIC: Alert and oriented MUSCULOSKELETAL: Moving all extremities with no apparent injury PSYCHIATRIC: No SI/HI Course Vital Signs 07/20/23 07/20/23 07/20/23 01:33 02:12 04:24 Temperature 97.9 F Pulse Rate 61 59 L 54 L Respiratory 18 18 18 Rate Blood Pressure 149/69 137/62 137/93 O2 Sat by Pulse 97 92 L 95 Oximetry Medical Decision Making - Medical Decision Making Was pt. sent in by a medical professional or institution (, PA, IMMIGRATION JUDGE, urgent care, hospital, or senior care...) When possible be specific @ -No Did you speak to anyone other than the patient for history (EMS, parent, family, police, friend...)? What history was obtained from this source @ -Family member at bedside Did you review nursing and triage notes (agree or disagree)? Why? @ -I reviewed and agree with nursing and triage notes Were old charts reviewed (outside hosp., previous admission, EMS record, old EKG, old radiological studies, urgent care reports/EKG's, senior care records)? Report findings @ -Reviewed ER visits for similar complaint were reviewed Differential Diagnosis (chest pain, altered mental status, abdominal pain women, abdominal pain men, vaginal bleeding, weakness, fever, dyspnea, syncope, headache, dizziness, GI bleed, back pain, seizure, CVA, palpatations, mental health)? @ -Allergic reaction, hereditary angioedema EKG interpreted by me (3pts min.). @ -As above X-rays interpreted by me (1pt min.). @ -None done CT interpreted by me (1pt min.). @ -None done U/S interpreted by me (1pt. min.). @ -None done What testing was considered but not performed or refused? (CT, X-rays, U/S, labs)? Why? @ -None What meds were considered but not given or refused? Why? @ -None Did you discuss the management of the patient with other professionals (professionals i.e. , PA, IMMIGRATION JUDGE, lab, RT, psych nurse, forensic social worker, agency sales management assistant, teacher, lead security officer, rn case management)? Give summary @ -No Was smoking cessation discussed for >3mins.? @ -No Was critical care preformed (if so, how long)? @ -No Were there social determinants of health that impacted care today? How? (Homelessness, low income, unemployed, alcoholism, drug addiction, transportation, low edu. Level, literacy, decrease access to med. care, senior living, rehab)? @ -No Was there de-escalation of care discussed even if they declined (Discuss DNR or withdrawal of care, Hospice)? DNR status @ -No What co-morbidities impacted this encounter? (DM, HTN, Smoking, COPD, CAD, Cancer, CVA, ARF, Chemo, Hep., AIDS, mental health diagnosis, sleep apnea, morbid obesity)? @ -None Was patient admitted / discharged? Hospital course, mention meds given and route, prescriptions, significant lab abnormalities, going to OR and other pertinent info. @ -Discharged Patient was seen and evaluated patient has hives on the upper extremities and buttocks as well as angioedema of the lips. No known exposures causing this reaction. This reaction has happened 5 times in the past year. Patient was treated with Solu-Medrol, Pepcid and Benadryl. Patient was observed for a couple of hours she had significant improvement in her angioedema and she was comfortable plan for discharge home patient will be seeing an water resource project manager this week. Undiagnosed new problem with uncertain prognosis? @ -No Drug Therapy requiring intensive monitoring for toxicity (Heparin, Nitro, Insulin, Cardizem)? @ -No Were any procedures done? @ -No Diagnosis/symptom? @ -Angioedema Acute, or Chronic, or Acute on Chronic? @ -Acute, recurrent Uncomplicated (without systemic symptoms) or Complicated (systemic symptoms)? @ -Uncomplicated Side effects of treatment? @ -No Exacerbation, Progression, or Severe Exacerbation? @ -No Poses a threat to life or bodily function? How? (Chest pain, [place], [place], pneumonia, PE, COPD, DKA, ARF, appy, cholecystitis, CVA, Diverticulitis, Homicidal, Suicidal, threat to staff... and all critical care pts) @ -Potentially, angioedema of the airway can be fatal Disposition Clinical Impression: Angioedema Disposition: HOME SELF-CARE Condition: Stable Instructions (If sedation given, give patient instructions): Angioedema (ED) Is patient prescribed a controlled substance at d/c from ED?: No Referrals: Sandrita Hobson MD [Primary Care Provider] - 1-2 days
[2023-07-20] MEDS: methylPREDNISolone SOD SUCCI 125 MG/2 ML VIAL IV STA (02:06)
[2023-07-20] MEDS: diphenhydrAMINE 50 MG CAP PO STA (02:06)
[2023-07-20] MEDS: FAMOTIDINE 20 MG/2 ML VIAL IV STA (02:06)
[2023-07-20 02:14] VITALS: RESP 18; TEMP 97.9
[2023-07-20 04:53] VITALS: BP 137/93; PULSE 54
== END 2023-07-20 04:25 | disposition home or self-care (01) ==
LOC: EC 01:27
DX: T78.3XXA Angioneurotic edema, initial encounter (principal)
CPT/HCPCS: 99283; 96374; 96375; J3490; J2919

== ENCOUNTER 2024-07-29 05:14 | Emergency (ER) | payer MEDICARE ==
[2024-07-29 05:20] VITALS: TEMP 98.2
[2024-07-29] MEDS: FAMOTIDINE 20 MG/2 ML VIAL IV STA (05:51)
[2024-07-29] MEDS: methylPREDNISolone SOD SUCCI 125 MG/2 ML VIAL IV STA (05:51)
[2024-07-29] MEDS: diphenhydrAMINE 50 MG/ML 1 ML VIAL IVP STA (05:51)
[2024-07-29 06:16] LABS: Basophils # (A) 0.06 10*3/uL (0.00-0.10); Basophils % (A) 0.7 %; Eosinophils # (A) 0.32 10*3/uL (0.04-0.35); Eosinophils % (A) 3.8 %; HCT 40.1 % (37.2-46.3); HGB 13.5 g/dL (12.0-15.0); Lymphocytes # (A) 2.12 10*3/uL (0.90-5.00); Lymphocytes % (A) 25.3 %; MCH 29.4 pg (27.0-32.0); MCHC 33.7 g/dL (32.0-37.0); MCV 87.4 fL (80.0-97.0); Monocytes # (A) 0.53 10*3/uL (0.20-1.00); Monocytes % (A) 6.3 %; Neutrophils % (A) 63.4 %; Platelet Count 331 10*3/uL (140-440); RBC 4.59 10*6/uL (4.10-5.20); RDW 14.8 % (11.5-14.5); WBC 8.37 10*3/uL (4.50-10.00)
[2024-07-29 06:35] LABS: ALT 23 U/L (4-34); AST 25 U/L (14-36); African American GFR (CKD) >90 (>60 ml/min/1.73 sqM); Albumin 4.1 g/dL (3.5-5.0); Alkaline Phosphatase 78 U/L (38-126); Anion Gap 11 mmol/L; Blood Urea Nitrogen 12 mg/dL (7-17); Calcium 9.7 mg/dL (8.4-10.2); Carbon Dioxide 25 mmol/L (22-30); Chloride 100 mmol/L (98-107); Glucose 138 mg/dL (74-99); Non-African American GFR(CKD) 86 (>60 ml/min/1.73 sqM); Potassium 3.6 mmol/L (3.5-5.1); Sodium 136 mmol/L (137-145); Total Bilirubin 0.6 mg/dL (0.2-1.3); Total Protein 6.6 g/dL (6.3-8.2)
--- NOTE | 2024-07-29 07:26 | ED ---
Allergic Reaction HPI - General Chief complaint: Allergic Reaction Stated complaint: Swollen tongue Time Seen by Provider: 07/29/24 05:43 Source: patient Mode of arrival: ambulatory Limitations: no limitations - History of Present Illness Initial Comments: Patient is 79-year-old woman who presents with complaint that she woke today with tongue swelling. The patient states that she believes she is having allergic reaction to something but does not know what. She has had similar episodes of tongue and oral swelling previously and the cause was never identified. She denies skin rash. She is not having cough or wheezing. No nausea, vomiting, diarrhea. No fever or sore throat. MD Complaint: other -: minutes(s) Exposure: unknown Symptoms: other (Tongue swelling) Severity: moderate Treatment Prior to Arrival: none Previous Allergy History: angioedema, other (Similar episodes) - Related Data Home Medications Medication Instructions Recorded Confirmed metFORMIN HCL [Glucophage] 500 mg PO TID 11/07/16 07/29/24 ALPRAZolam [Xanax] 0.5 mg PO BID 04/22/17 07/29/24 Citalopram Hydrobromide [CeleXA] 40 mg PO DAILY 07/29/24 07/29/24 Memantine [Namenda] 10 mg PO BID 07/29/24 07/29/24 Rosuvastatin Calcium 5 mg PO DAILY 07/29/24 07/29/24 hydroCHLOROthiazide [Hydrodiuril] 25 mg PO DAILY 07/29/24 07/29/24 Previous Rx's Medication Instructions Recorded Famotidine [Pepcid] 20 mg PO BID #14 tablet 07/29/24 diphenhydrAMINE [Benadryl] 50 mg PO QID PRN #28 capsule 07/29/24 predniSONE [Deltasone] 20 mg PO BID #8 tab 07/29/24 Allergies Allergy/AdvReac Type Severity Reaction Status Date / Time No Known Allergies Allergy Verified 07/29/24 12:19 Review of Systems ROS Statement: Those systems with pertinent positive or pertinent negative responses have been documented in the HPI. ROS Other: All systems not noted in ROS Statement are negative. Constitutional: Denies: fever, chills Eyes: Denies: eye pain, eye discharge ENT: Denies: throat pain, congestion Respiratory: Denies: cough, dyspnea, stridor Cardiovascular: Denies: chest pain, palpitations, edema Gastrointestinal: Denies: nausea, vomiting, diarrhea Genitourinary: Denies: dysuria Musculoskeletal: Denies: back pain Skin: Denies: rash Neurological: Denies: headache, weakness Past Medical History Past Medical History: Diabetes Mellitus, GERD/Reflux, Hyperlipidemia, Hypertension, Osteoarthritis (OA) Additional Past Medical History / Comment(s): arthritis rt knee, History of Any Multi-Drug Resistant Organisms: None Reported Past Surgical History: Breast Surgery, Cholecystectomy, Heart Catheterization, Hysterectomy, Tubal Ligation Additional Past Surgical History / Comment(s): rt breast biopsy, rt carotid endartectomy Past Anesthesia/Blood Transfusion Reactions: No Reported Reaction Additional Past Anesthesia/Blood Transfusion Reaction / Comment(s): claustrophobic Past Psychological History: Anxiety, Depression Smoking Status: Never smoker Past Alcohol Use History: None Reported Past Drug Use History: None Reported - Past Family History Mother Family Medical History: No Reported History Father Family Medical History: Cancer General Exam Limitations: no limitations General appearance: alert, in no apparent distress Head exam: Present: atraumatic, normocephalic Eye exam: Present: normal appearance, PERRL, EOMI. Absent: scleral icterus, conjunctival injection ENT exam: Present: normal oropharynx, mucous membranes moist, other (Patient does have some moderate degree of symmetric tongue swelling. The oropharynx appears clear.) Neck exam: Present: normal inspection, full ROM, other (No neck or sublingual fullness). Absent: tenderness, meningismus Respiratory exam: Present: normal lung sounds bilaterally. Absent: respiratory distress, wheezes, rales, rhonchi, stridor, accessory muscle use Cardiovascular Exam: Present: regular rate, normal rhythm, normal heart sounds. Absent: systolic murmur, diastolic murmur, rubs, gallop GI/Abdominal exam: Present: soft. Absent: tenderness, guarding, rebound Extremities exam: Present: normal inspection, normal capillary refill. Absent: pedal edema, calf tenderness Back exam: Present: normal inspection Neurological exam: Present: alert Skin exam: Present: warm, dry, intact, normal color. Absent: rash, urticaria Course Vital Signs 07/29/24 07/29/24 07/29/24 05:17 05:30 06:16 Temperature 98.2 F Pulse Rate 83 70 Respiratory 18 18 16 Rate Blood Pressure 162/86 140/125 O2 Sat by Pulse 98 92 L Oximetry 07/29/24 07/29/24 06:36 07:53 Temperature Pulse Rate 65 64 Respiratory 16 19 Rate Blood Pressure 178/83 150/69 O2 Sat by Pulse 93 L 95 Oximetry Medical Decision Making - Medical Decision Making Was pt. sent in by a medical professional or institution (JR Armstrong, AWNING HANGER SUPERVISOR, urgent care, hospital, or longterm...) When possible be specific @ -[No] Did you speak to anyone other than the patient for history (EMS, parent, family, police, friend...)? What history was obtained from this source @ -[No] Did you review nursing and triage notes (agree or disagree)? Why? @ -[I reviewed and agree with nursing and triage notes] Were old charts reviewed (outside hosp., previous admission, EMS record, old EKG, old radiological studies, urgent care reports/EKG's, longterm records)? Report findings @ -[No old charts were reviewed] Differential Diagnosis (chest pain, altered mental status, abdominal pain women, abdominal pain men, vaginal bleeding, weakness, fever, dyspnea, syncope, headache, dizziness, GI bleed, back pain, seizure, CVA, palpatations, mental health, musculoskeletal)? @ -[Differential diagnosis includes allergic reaction, angioedema, infection, head and neck tumor, this list not comprehensive. EKG interpreted by me (3pts min.). @ -[As above] X-rays interpreted by me (1pt min.). @ -[None done] CT interpreted by me (1pt min.). @ -[None done] U/S interpreted by me (1pt. min.). @ -[None done] What testing was considered but not performed or refused? (CT, X-rays, U/S, labs)? Why? @ -[None] What meds were considered but not given or refused? Why? @ -[None] Did you discuss the management of the patient with other professionals (professionals i.e. JR Armstrong, AWNING HANGER SUPERVISOR, lab, RT, psych nurse, social worker aide, cold saw operator, teacher, service officer, egg caser)? Give summary @ -[No] Was smoking cessation discussed for >3mins.? @ -[No] Was critical care preformed (if so, how long)? @ -[No] Were there social determinants of health that impacted care today? How? (Homelessness, low income, unemployed, alcoholism, drug addiction, transportation, low edu. Level, literacy, decrease access to med. care, [facility], rehab)? @ -[No] Was there de-escalation of care discussed even if they declined (Discuss DNR or withdrawal of care, Hospice)? DNR status @ -[No] What co-morbidities impacted this encounter? (DM, HTN, Smoking, COPD, CAD, Cancer, CVA, ARF, Chemo, Hep., AIDS, mental health diagnosis, sleep apnea, morbid obesity)? @ -[None] Was patient admitted / discharged? Hospital course, mention meds given and rou te, prescriptions, significant lab abnormalities, going to OR and other pertinent info. @ -[Patient is 79-year-old woman presenting with tongue swelling that she woke with. The patient does not believe she is taking MARICARMEN inhibitor. She may be taking an ARB she is not sure. The patient did have improvement here after medications and period of observation. Will have patient follow with her physi aris and also with allergy immunology to have further evaluation for angioedema Undiagnosed new problem with uncertain prognosis? @ -[No] Drug Therapy requiring intensive monitoring for toxicity (Heparin, Nitro, Insulin, Cardizem)? @ -[No] Were any procedures done? @ -[No] Diagnosis/symptom? @ -[Acute angioedema Acute, or Chronic, or Acute on Chronic? @ -[Acute Uncomplicated (without systemic symptoms) or Complicated (systemic symptoms)? @ -[Uncomplicated Side effects of treatment? @ -[No] Exacerbation, Progression, or Severe Exacerbation? @ -[No] Poses a threat to life or bodily function? How? (Chest pain, USA, [place], pneumonia, PE, COPD, DKA, ARF, appy, cholecystitis, CVA, Diverticulitis, Homicidal, Suicidal, threat to staff... and all critical care pts) @ -[No] All treatments are based on ideal body weight as in ED triage - Lab Data Result diagrams: 07/29/24 05:48 07/29/24 05:48 Lab Results 07/29/24 07/29/24 Range/Units 05:48 05:48 WBC 8.37 (4.50-10.00) 10*3/uL RBC 4.59 (4.10-5.20) 10*6/uL Hgb 13.5 (12.0-15.0) g/dL Hct 40.1 (37.2-46.3) % MCV 87.4 (80.0-97.0) fL MCH 29.4 (27.0-32.0) pg MCHC 33.7 (32.0-37.0) g/dL Plt Count 331 (140-440) 10*3/uL MPV 10.0 (9.5-12.2) fL Immature Gran % (Auto) 0.5 % Neutrophils % 63.4 % Lymphocytes % 25.3 % Monocytes % 6.3 % Eosinophils % 3.8 % Basophils % 0.7 % Immature Gran # 0.04 (0.00-0.04) 10*3/uL Neutrophils # 5.30 (1.80-7.70) 10*3/uL Lymphocytes # 2.12 (0.90-5.00) 10*3/uL Monocytes # 0.53 (0.20-1.00) 10*3/uL Eosinophils # 0.32 (0.04-0.35) 10*3/uL Basophils # 0.06 (0.00-0.10) 10*3/uL Sodium 136 L (137-145) mmol/L Potassium 3.6 (3.5-5.1) mmol/L Chloride 100 (98-107) mmol/L Carbon Dioxide 25 (22-30) mmol/L Anion Gap 11 mmol/L BUN 12 (7-17) mg/dL Creatinine 0.64 (0.52-1.04) mg/dL Est GFR (CKD-EPI)AfAm >90 (>60 ml/min/1.73 sqM) Est GFR (CKD-EPI)NonAf 86 (>60 ml/min/1.73 sqM) Glucose 138 H (74-99) mg/dL Calcium 9.7 (8.4-10.2) mg/dL Total Bilirubin 0.6 (0.2-1.3) mg/dL AST 25 (14-36) U/L ALT 23 (4-34) U/L Alkaline Phosphatase 78 (38-126) U/L Total Protein 6.6 (6.3-8.2) g/dL Albumin 4.1 (3.5-5.0) g/dL Disposition Clinical Impression: Angioedema Disposition: HOME SELF-CARE Condition: Good Instructions (If sedation given, give patient instructions): General Allergic Reaction (ED) Additional Instructions: Follow-up with your doctor to ensure that you are not taking an MARICARMEN inhibitor or an angiotensin receptor dale for your blood pressure Prescriptions: diphenhydrAMINE [Benadryl] 50 mg PO QID PRN #28 capsule PRN Reason: Allergic Reaction predniSONE [Deltasone] 20 mg PO BID #8 tab Famotidine [Pepcid] 20 mg PO BID #14 tablet Is patient prescribed a controlled substance at d/c from ED?: No Referrals: Sandrita Hobson MD [Primary Care Provider] - 1-2 days
[2024-07-29 07:54] VITALS: BP 150/69; PULSE 64; RESP 19
== END 2024-07-29 08:16 | disposition home or self-care (01) ==
LOC: EC 05:14
DX: T78.3XXA Angioneurotic edema, initial encounter (principal)
CPT/HCPCS: 36415; 80053; 85025; 99283; 96374; 96375; J1200; J2919; J1308

== ENCOUNTER 2024-08-08 02:07 | Emergency (ER) | payer MEDICARE ==
--- NOTE | 2024-08-08 03:06 | ED ---
Allergic Reaction HPI - General Chief complaint: Allergic Reaction Stated complaint: Allergic Reaction, Throat Swelling, Difficulty Chen Time Seen by Provider: 08/08/24 02:25 Source: patient, RN notes reviewed, old records reviewed Mode of arrival: ambulatory - History of Present Illness Initial Comments: 79-year-old female presents with complaints of an allergic reaction. Of note patient was here approximately 10 days ago with similar symptoms. States she has been worked up in the last year for an unknown allergen that is causing her to have subsequent allergic reactions. Reports she was on a MARICARMEN inhibitor/ARB which was discontinued about a month ago but she continues to have allergic reactions. States normally her allergic reactions are mostly her tongue swelling up toward the beginning of the back of her throat starts to feel a little swollen. States tonight she was woken from her sleep because she felt a lump further down in the back of her throat that she felt was continuing to swell and decided to come to the ER for further evaluation. Symptoms: difficulty swallowing Treatment Prior to Arrival: none - Related Data Home Medications Medication Instructions Recorded Confirmed RX: metFORMIN HCL [Glucophage] 500 mg PO TID 11/07/16 07/29/24 RX: ALPRAZolam [Xanax] 0.5 mg PO BID 04/22/17 07/29/24 Citalopram Hydrobromide [CeleXA] 40 mg PO DAILY 07/29/24 07/29/24 Memantine [Namenda] 10 mg PO BID 07/29/24 07/29/24 RX: Rosuvastatin Calcium 5 mg PO DAILY 07/29/24 07/29/24 hydroCHLOROthiazide [Hydrodiuril] 25 mg PO DAILY 07/29/24 07/29/24 Previous Rx's Medication Instructions Recorded Famotidine [Pepcid] 20 mg PO BID #14 tablet 07/29/24 RX: predniSONE [Deltasone] 20 mg PO BID #8 tab 07/29/24 diphenhydrAMINE [Benadryl] 50 mg PO QID PRN #28 capsule 07/29/24 Allergies Allergy/AdvReac Type Severity Reaction Status Date / Time No Known Allergies Allergy Verified 07/29/24 12:19 Review of Systems ROS Statement: Those systems with pertinent positive or pertinent negative responses have been documented in the HPI. ROS Other: All systems not noted in ROS Statement are negative. Past Medical History Past Medical History: Diabetes Mellitus, GERD/Reflux, Hyperlipidemia, Hypert ension, Osteoarthritis (OA) Additional Past Medical History / Comment(s): arthritis rt knee, History of Any Multi-Drug Resistant Organisms: None Reported Past Surgical History: Breast Surgery, Cholecystectomy, Heart Catheterization, Hysterectomy, Tubal Ligation Additional Past Surgical History / Comment(s): rt breast biopsy, rt carotid endartectomy Past Anesthesia/Blood Transfusion Reactions: No Reported Reaction Additional Past Anesthesia/Blood Transfusion Reaction / Comment(s): claustrophobic Past Psychological History: Anxiety, Depression Smoking Status: Never smoker Past Alcohol Use History: None Reported Past Drug Use History: None Reported - Past Family History Mother Family Medical History: No Reported History Father Family Medical History: Cancer Course Vital Signs 08/08/24 02:09 Temperature 98.1 F Pulse Rate 87 Respiratory 18 Rate Blood Pressure 151/81 O2 Sat by Pulse 95 Oximetry Medical Decision Making - Medical Decision Making Was pt. sent in by a medical professional or institution (, JR, AMBULATORY TECHNOLOGIST, urgent care, hospital, or usp...) When possible be specific @ -No Did you speak to anyone other than the patient for history (EMS, parent, family, police, friend...)? What history was obtained from this source @ -No Did you review nursing and triage notes (agree or disagree)? Why? @ -I reviewed and agree with nursing and triage notes Were old charts reviewed (outside hosp., previous admission, EMS record, old EKG, old radiological studies, urgent care reports/EKG's, usp records)? Report findings @ -No old charts were reviewed Differential Diagnosis? @ -Allergic reaction, anaphylaxis, Klein-Francisco syndrome, hereditary angioedema this is not meant to be fully inclusive list EKG interpreted by me (3pts min.). @ -As above X-rays interpreted by me (1pt min.). @ -None done CT interpreted by me (1pt min.). @ -None done U/S interpreted by me (1pt. min.). @ -None done What testing was considered but not performed or refused? (CT, X-rays, U/S, labs)? Why? @ -None What meds were considered but not given or refused? Why? @ -None Did you discuss the management of the patient with other professionals (professionals i.e. , PA, AMBULATORY TECHNOLOGIST, lab, RT, psych nurse, social welfare research worker, infusion pharmacist, teacher, hazard mitigation officer, skilled nursing case manager)? Give summary @ -No Was smoking cessation discussed for >3mins.? @ -No Was critical care preformed (if so, how long)? @ -No Were there social determinants of health that impacted care today? How? (Homelessness, low income, unemployed, alcoholism, drug addiction, transportat ion, low edu. Level, literacy, decrease access to med. care, half-way, rehab)? @ -No Was there de-escalation of care discussed even if they declined (Discuss DNR or withdrawal of care, Hospice)? DNR status @ -No What co-morbidities impacted this encounter? (DM, HTN, Smoking, COPD, CAD, Cancer, CVA, ARF, Chemo, Hep., AIDS, mental health diagnosis, sleep apnea, morbid obesity)? @ -None Was patient admitted / discharged? Hospital course, mention meds given and route, prescriptions, significant lab abnormalities, going to OR and other pertinent info. @ -Discharged, this is a 79-year-old female presenting with symptoms of difficulty with swallowing and a lump in her throat. She has been having simil ar symptoms in the last year and has been following with financing analyst today try to determine what the underlying cause of her allergic reactions are. While in the ED she received Pepcid, Solu-Medrol, and Benadryl with significant improvement in her symptoms. Shortly before discharge patient stated that the lump in her throat had gone down significantly and that she was feeling much better. Patient is advised to follow-up with her PCP in 1 to 2 days. Undiagnosed new problem with uncertain prognosis? @ -No Drug Therapy requiring intensive monitoring for toxicity (Heparin, Nitro, Insulin, Cardizem)? @ -No Were any procedures done? @ -No Diagnosis/symptom? @ -Allergic reaction Acute, or Chronic, or Acute on Chronic? @ -Acute on chronic Uncomplicated (without systemic symptoms) or Complicated (systemic symptoms)? @ -Default Side effects of treatment? @ -No Exacerbation, Progression, or Severe Exacerbation? @ -No Poses a threat to life or bodily function? How? (Chest pain, USA, [place], pneumonia, PE, COPD, DKA, ARF, appy, cholecystitis, CVA, Diverticulitis, Homicidal, Suicidal, threat to staff... and all critical care pts) @ -No - Lab Data Result diagrams: 08/08/24 02:26 Lab Results 08/08/24 Range/Units 02:26 WBC 10.70 H (4.50-10.00) 10*3/uL RBC 4.95 (4.10-5.20) 10*6/uL Hgb 14.5 (12.0-15.0) g/dL Hct 44.2 (37.2-46.3) % MCV 89.3 (80.0-97.0) fL MCH 29.3 (27.0-32.0) pg MCHC 32.8 (32.0-37.0) g/dL Plt Count 354 (140-440) 10*3/uL MPV 10.3 (9.5-12.2) fL Immature Gran % (Auto) 0.5 % Neutrophils % 56.3 % Lymphocytes % 30.9 % Monocytes % 7.7 % Eosinophils % 4.1 % Basophils % 0.5 % Immature Gran # 0.05 H (0.00-0.04) 10*3/uL Neutrophils # 6.03 (1.80-7.70) 10*3/uL Lymphocytes # 3.31 (0.90-5.00) 10*3/uL Monocytes # 0.82 (0.20-1.00) 10*3/uL Eosinophils # 0.44 H (0.04-0.35) 10*3/uL Basophils # 0.05 (0.00-0.10) 10*3/uL Disposition Clinical Impression: Allergic reaction Disposition: HOME SELF-CARE Instructions (If sedation given, give patient instructions): Anaphylaxis (ED) Is patient prescribed a controlled substance at d/c from ED?: No Referrals: Sandrita Hobson MD [Primary Care Provider] - 1-2 days
[2024-08-08] MEDS: diphenhydrAMINE 50 MG/ML 1 ML VIAL IVP STA (03:11)
[2024-08-08] MEDS: methylPREDNISolone SOD SUCCI 125 MG/2 ML VIAL IV STA (03:12)
[2024-08-08] MEDS: FAMOTIDINE 20 MG/2 ML VIAL IV STA (03:12)
[2024-08-08 03:13] LABS: Basophils # (A) 0.05 10*3/uL (0.00-0.10); Basophils % (A) 0.5 %; Eosinophils # (A) 0.44 10*3/uL (0.04-0.35); Eosinophils % (A) 4.1 %; HCT 44.2 % (37.2-46.3); HGB 14.5 g/dL (12.0-15.0); Lymphocytes # (A) 3.31 10*3/uL (0.90-5.00); Lymphocytes % (A) 30.9 %; MCH 29.3 pg (27.0-32.0); MCHC 32.8 g/dL (32.0-37.0); MCV 89.3 fL (80.0-97.0); Mean Platelet Volume 10.3 fL (9.5-12.2); Monocytes # (A) 0.82 10*3/uL (0.20-1.00); Monocytes % (A) 7.7 %; Neutrophils # (A) 6.03 10*3/uL (1.80-7.70); Neutrophils % (A) 56.3 %; Platelet Count 354 10*3/uL (140-440); RBC 4.95 10*6/uL (4.10-5.20); RDW 15.4 % (11.5-14.5)
[2024-08-08 05:23] VITALS: BP 113/70; PULSE 63; RESP 17; TEMP 98
== END 2024-08-08 05:31 | disposition home or self-care (01) ==
LOC: EC 02:07
DX: T78.40XA Allergy, unspecified, initial encounter (principal)
CPT/HCPCS: 36415; 85025; 99283; 96374; 96375 ×2; J1200; J2919; J1308